=== PATIENT | female | born 1945 | race Caucasian/White ===

== ENCOUNTER 2018-02-01 22:33 | Emergency (ER) | payer MEDICARE, BC ==
[~2018-02-01] VITALS: Ht 162.6 cm; Wt 100.0 kg
[~2018-02-01 22:33] MED LIST: ARIP10TA15 PO; DULO-31 PO; ENAL5TAB10 PO; METF500T PO; PRIM50TA42 PO; TAMO20TA4 PO; VAL5T PO
[2018-02-01] MEDS ORDERED: ipratropium/albuterol 3ml nebule NEB STA (22:43)
[2018-02-01] MEDS ORDERED: LORazepam 2 mg/ml vial IV ONE (22:50)
[2018-02-01] MEDS ORDERED: LORazepam 2 mg/ml vial ONE (22:50)
[2018-02-01 23:39] LABS: BASOPHILS # (AUTO) 0.1 X10'3 (0-0.2); BASOPHILS % (AUTO) 1.3 % (0-1); EOSINOPHILS # (AUTO) 0.1 X10'3 (0-0.9); EOSINOPHILS % (AUTO) 0.9 % (0-6); HEMATOCRIT 46.6 % (35.0-45.0); HEMOGLOBIN 15.6 g/dl (12.0-16.0); LYMPHOCYTES # (AUTO) 2.5 X10'3 (1.1-4.8); LYMPHOCYTES % (AUTO) 29.9 % (21-51); MEAN CORPUSCULAR HEMOGLOBIN 30.6 PG (27.0-31.0); MEAN CORPUSCULAR HGB CONC 33.6 % (33.0-36.5); MEAN CORPUSCULAR VOLUME 91.2 FL (78-98); MEAN PLATELET VOLUME 9.9 FL (7.4-10.4); MONOCYTES # (AUTO) 0.6 X10'3 (0-0.9); MONOCYTES % (AUTO) 6.5 % (2-12); NEUTROPHILS # (AUTO) 5.2 X10'3 (1.8-7.7); NEUTROPHILS % (AUTO) 61.4 % (42-75); PLATELET COUNT 229 X10'3 (140-440); RED BLOOD COUNT 5.11 X10'6 (4.20-5.60); RED CELL DISTRIBUTION WIDTH 14.3 % (11.5-14.5); WHITE BLOOD COUNT 8.5 X10'3 (4.5-11.0)
[2018-02-01 23:48] LABS: PARTIAL THROMBOPLASTIN TIME 22 SECONDS (22-32); PROTHROMBIN TIME 10.3 SECONDS (9.0-12.0)
[2018-02-01] MEDS ORDERED: ipratropium/albuterol 3ml nebule NEB ONE (23:50)
[2018-02-01 23:54] LABS: ALANINE AMINOTRANSFERASE 114 U/L (12-78); ALKALINE PHOSPHATASE 52 IU/L (46-116); ANION GAP 20 (8-16); ASPARTATE AMINO TRANSFERASE 121 U/L (10-37); BILIRUBIN,TOTAL 0.5 MG/DL (0.1-1.0); BLOOD UREA NITROGEN 11 MG/DL (7-18); BUN/CREATININE RATIO 12.8 (6.6-38.0); CHLORIDE 98 MMOL/L (99-107); CREATININE 0.86 MG/DL (0.40-0.90); GLUCOSE 97 MG/DL (70-104); POTASSIUM 3.8 MMOL/L (3.5-5.1); SODIUM 138 MMOL/L (135-145); TOTAL CARBON DIOXIDE 20.1 MMOL/L (24-32); TOTAL PROTEIN 8.1 G/DL (6.4-8.2); eGFR 65 ML/MIN
[2018-02-02 00:47] LABS: D-DIMER 0.92 MG/L FEU (0-0.50)
[2018-02-02] MEDS ORDERED: iohexol 350MG/ML 100ml bottle IV ONE (01:06)
[2018-02-02] MEDS ORDERED: LORazepam 2 mg/ml vial IV ONE (01:25)
[2018-02-02 01:51] LABS: ABG BASE EXCESS 0.1 mmol/L (-2.0-3.0); ABG HCO3 17.6 mmol/L (22.0-26.0); ABG PCO2 (T) 16.3 mmHg (32.0-45.0); ABG PO2 (T) 90.8 mmHg (83-108); ALLEN'S TEST Positive; FCOHb 0.9 % (0.5-1.5); FMetHb 0.3 % (0.3-1.12); FO2Hb 96.8 % (94-100); PATIENT TEMPERATURE 36.6; TOTAL HEMOGLOBIN 15.7 G/dl (12.0-16.0)
[2018-02-02] MEDS ORDERED: PRED20TA PO (03:15)
[2018-02-02 03:27] VITALS: BP 160/66
== END 2018-02-02 03:28 | disposition home or self-care (01) ==
LOC: ER 22:33
DX: J44.9 Chronic obstructive pulmonary disease, unspecified (principal); I27.20 Pulmonary hypertension, unspecified; I10 Essential (primary) hypertension; K21.9 Gastro-esophageal reflux disease without esophagitis; M79.7 Fibromyalgia; Z90.49 Acquired absence of other specified parts of digestive tract; Z86.69 Personal history of other diseases of the nervous system and sense organs; Z95.0 Presence of cardiac pacemaker; Z98.890 Other specified postprocedural states; Z88.2 Allergy status to sulfonamides; Z88.5 Allergy status to narcotic agent; Z88.8 Allergy status to other drugs, medicaments and biological substances; Z79.899 Other long term (current) drug therapy
CPT/HCPCS: 36415; 36600; 71045; 71275; 80053; 82803; 84484; 85018; 85025; 85379; 85610; 85730; 93005; 94640; 94760; 96374; 96376; 99285; J2060; J7030; Q9967

== ENCOUNTER 2020-12-25 01:23 | Inpatient (IN) | payer MEDICARE, OTHER ==
[2020-12-25] VITALS (14 sets, daily range): BP systolic 100–169; BP diastolic 42–68
[~2020-12-25] VITALS: Ht 162.6 cm; Wt 100.0 kg
[~2020-12-25 01:23] MED LIST changes: +DIAZ5TAB22 PO; -ENAL5TAB10 PO; +ENAL5TAB21 PO; -PRIM50TA42 PO; +PRIM50TA5 PO; -VAL5T PO
[2020-12-25] MEDS ORDERED: normal saline 1000ML IV soln IV ONE (01:30)
[2020-12-25] MEDS ORDERED: ondansetron/PF 4mg/2ml inj IV ONE (01:30)
[2020-12-25] MEDS ORDERED: fentaNYL/PF 50MCG/1 ML 2ML syringe IV ONE ×2 (01:30→02:35)
[2020-12-25 02:33] LABS: BASOPHILS % (AUTO) 0.2 % (0-1); EOSINOPHILS % (AUTO) 0 % (0-6); HEMOGLOBIN 17.6 g/dl (12.0-16.0); LYMPHOCYTES # (AUTO) 1.1 X10'3 (1.1-4.8); LYMPHOCYTES % (AUTO) 12.1 % (21-51); MEAN CORPUSCULAR HEMOGLOBIN 30.8 PG (27.0-31.0); MEAN CORPUSCULAR HGB CONC 33.2 g/dL (33.0-36.5); MEAN CORPUSCULAR VOLUME 92.7 FL (78-98); MEAN PLATELET VOLUME 9.6 FL (7.4-10.4); MONOCYTES # (AUTO) 0.3 X10'3 (0-0.9); MONOCYTES % (AUTO) 3.2 % (2-12); NEUTROPHILS # (AUTO) 7.6 X10'3 (1.8-7.7); NEUTROPHILS % (AUTO) 84.5 % (42-75); PLATELET COUNT 194 X10'3 (140-440); RED BLOOD COUNT 5.72 X10'6 (4.20-5.60); RED CELL DISTRIBUTION WIDTH 15.1 % (11.5-14.5)
[2020-12-25] MEDS ORDERED: ceFOXitin 2GM-NS 100mL ADDvant 100 ML IV ONE (02:35)
[2020-12-25] MEDS ORDERED: normal saline 1000ML IV soln IVB ONE ×2 (02:55→05:35)
[2020-12-25 03:02] LABS: ALANINE AMINOTRANSFERASE 88 U/L (12-78); ALBUMIN 3.4 G/DL (3.4-5.0); ALBUMIN/GLOBULIN RATIO 0.8 (1.1-1.5); ALKALINE PHOSPHATASE 94 IU/L (46-116); ANION GAP 18 (8-16); ASPARTATE AMINO TRANSFERASE 62 U/L (10-37); BILIRUBIN,TOTAL 0.8 MG/DL (0.1-1.0); BLOOD UREA NITROGEN 15 MG/DL (7-18); CALCIUM 9.5 MG/DL (8.5-10.1); CHLORIDE 100 MMOL/L (99-107); CREATININE 1.15 MG/DL (0.40-0.90); GLUCOSE 160 MG/DL (70-104); MAGNESIUM 2.5 MG/DL (1.5-2.4); POTASSIUM 3.5 MMOL/L (3.5-5.1); SODIUM 137 MMOL/L (135-145); TOTAL CARBON DIOXIDE 19.3 MMOL/L (24-32); TOTAL PROTEIN 7.7 G/DL (6.4-8.2); eGFR 46 ML/MIN
[2020-12-25] MEDS ORDERED: dextrose ORAL solution 15 GM/59 ML bottle PO PRN ×2 (04:00)
[2020-12-25] MEDS ORDERED: dextrose 50%-water 50ml dispensing syringe IV PRN ×2 (04:00)
[2020-12-25] MEDS ORDERED: glucagon, human recombinant 1mg kit SUBCUT PRN (04:00)
[2020-12-25] MEDS ORDERED: MESSAGE TO PHARMACY PO ONE (04:00)
[2020-12-25] MEDS ORDERED: ondansetron 4mg rapidly disintigrating tab PO PRN (04:05)
[2020-12-25] MEDS ORDERED: magnesium hydroxide 30ml (MOM) UD suspension PO PRN (04:05)
[2020-12-25] MEDS ORDERED: mag hydrox/Alum hydrox/simeth 30ml oral suspension PO PRN (04:05)
[2020-12-25] MEDS ORDERED: diphenhydrAMINE 25mg capsule PO PRN (04:05)
[2020-12-25] MEDS ORDERED: acetaminophen 325mg tablet PO PRN ×2 (04:05)
[2020-12-25] MEDS ORDERED: diphenhydrAMINE 50 mg/ml inj IV PRN (04:05)
[2020-12-25] MEDS ORDERED: bisacodyl 10mg suppository rectal RC PRN (04:05)
[2020-12-25] MEDS ORDERED: normal saline 1000ml 1,000 ML IV SCH (04:05)
[2020-12-25] MEDS ORDERED: ondansetron/PF 4mg/2ml inj IV PRN ×3 (04:05→20:05)
[2020-12-25] MEDS ORDERED: morphine 2 MG/ML inj. syringe IV PRN ×2 (04:05)
[2020-12-25 04:58] LABS: HEMOGLOBIN A1C 5.6 % (4.5-6.2)
[2020-12-25 05:03] LABS: LIPASE 74 U/L (73-393); PHOSPHORUS 5.1 MG/DL (2.3-4.5)
[2020-12-25 05:03] LABS: PARTIAL THROMBOPLASTIN TIME 31 SECONDS (22-32)
[2020-12-25] MEDS ORDERED: EMPA1TAB7 PO (05:11)
[2020-12-25] MEDS ORDERED: CARSR60C PO (05:11)
[2020-12-25] MEDS ORDERED: OLAN-1 PO (05:12)
[2020-12-25] MEDS ORDERED: ASPI-1265 PO (05:13)
[2020-12-25] MEDS ORDERED: SEMA1PEN SQ (05:14)
[2020-12-25] MEDS ORDERED: IPRA3AMP9 IH (05:15)
[2020-12-25] MEDS ORDERED: ALBU0.63 IH (05:16)
[2020-12-25] MEDS ORDERED: GUAI-422 PO (05:18)
[2020-12-25] MEDS ORDERED: DIPH25TA62 PO (05:18)
[2020-12-25] MEDS: HYDROcodone/acetaminophen 5mg/325mg tablet PO PRN (05:40)
--- NOTE | 2020-12-25 05:55 | NUR ---
Patient provided with bedside commode, unable to void at this time. 3rd litre of NS bolus infusing.
--- NOTE | 2020-12-25 06:50 | NUR ---
I have received report from Veronica YANG and had the opportunity to ask questions and assume patient care.
[2020-12-25] MEDS: normal saline 1000ml 1,000 ML IV SCH ×3 (07:35→21:10)
[2020-12-25] MEDS ORDERED: CADD PCA waste documentation MC PRN (07:35)
[2020-12-25] MEDS ORDERED: naloxone 0.4 mg/ml inj IV PRN (07:35)
--- NOTE | 2020-12-25 07:35 | NUR ---
PAGER ID: [phone] MESSAGE: [id number]. Please address med rec, janie hanley [phone]
[2020-12-25] MEDS: pantoprazole 40 MG vial IV SCH (07:42)
[2020-12-25] MEDS: sennosides/docusate sodium tablet PO SCH ×2 (07:43→21:32)
[2020-12-25] MEDS: docusate sod 100mg capsule PO SCH ×2 (07:43→21:32)
[2020-12-25] MEDS ORDERED: rocuronium 10mg/ml inj IV ONE ×2 (08:00→18:33)
[2020-12-25] MEDS ORDERED: piperacillin/tazo 4.5gm/100ml 100 ML IV SCH (08:00)
[2020-12-25] MEDS ORDERED: docusate sod 100mg capsule PO SCH (08:00)
[2020-12-25] MEDS ORDERED: etomidate 2mg/ml inj. ONE (08:00)
[2020-12-25] MEDS ORDERED: diazepam 5mg tablet PO PRN (08:15)
[2020-12-25] MEDS: HYDROmorph./NS 0.2 mg/ml CADD 100 ML IV SCH ×5 (08:51→17:00)
--- NOTE | 2020-12-25 08:57 | NUR ---
Received a call from Dr. Duque regarding patient, wants general consent ordered for laproscopic possible open appendectomy, dilaudid cadd with standard setting and antibiotics (already on zosyn). Dilaudid Cadd set up and running, patient educated regarding use.
--- NOTE | 2020-12-25 10:00 | NUR ---
Patient had not voided since being in the hospital, bladder scan reveled 732 mls in bladder, obtained order from Dr. Yin for a protocol pompa to be placed due to urinary retention
--- NOTE | 2020-12-25 11:09 | NUR ---
PAGER ID: [phone] MESSAGE: [phone], Lalitha, had normal saline ordered for 100mls per hour but it got discontinued. Do you want her on fluids ? lactic was 4.9 in the ER. Fiona [id number]
[2020-12-25] MEDS: ipratropium/albuterol 3ml nebule IH SCH ×3 (13:00→20:40)
--- NOTE | 2020-12-25 13:11 | NUR ---
PT. REFUSED 1300 SVN...STATES SHE DOESN'T WANT TO COUGH DUE TO ABDOMINAL PAIN
--- NOTE | 2020-12-25 13:12 | NUR ---
Called OR charge nurse to let them know about patients diabetic medications.
--- NOTE | 2020-12-25 14:57 | NUR ---
DM Consult: Pt hx T2DM takes metformin at home w/ A1C 5.6 this admit per EMR. Not appropriate for DM ed at this time. Addendum: 12/25/20 at [address] Amended: Links added.
--- NOTE | 2020-12-25 15:37 | NUR ---
Problems reprioritized. Patient report given, questions answered & plan of care reviewed with Thee CADMIUM LIQUOR MAKER RN.
[2020-12-25] MEDS ORDERED: BUPIVAcaine 0.5% inj/PF 30 ML ONE (15:44)
[2020-12-25] MEDS ORDERED: LIDOcaine 1% 30ml preserv. free vial ONE (16:56)
[2020-12-25] MEDS: morphine 4 MG/ML inj SYRINge ONE (17:34)
[2020-12-25] MEDS ORDERED: albuterol 60 PUFF/8GM Inhaler IH ONE (18:00)
[2020-12-25] MEDS ORDERED: sevoflurane 250ml liquid IH ONE (18:00)
[2020-12-25] MEDS ORDERED: famotidine/PF 10 mg/ml inj IV ONE ×2 (18:00→18:47)
[2020-12-25] MEDS ORDERED: fentaNYL/PF 50MCG/1 ML 2ML syringe ONE (18:10)
[2020-12-25] MEDS ORDERED: midazolam 1 mg/ML 2ml injection ONE (18:10)
--- NOTE | 2020-12-25 18:30 | NUR ---
Problems reprioritized. Patient report given, questions answered & plan of care reviewed with Gertrude YANG.
[2020-12-25] MEDS ORDERED: LIDOcaine 2% (20mg/ml) 5ml vial ONE (18:33)
[2020-12-25] MEDS ORDERED: dexamethasone sod phosphate 4mg/ml inj. ONE (18:33)
[2020-12-25] MEDS ORDERED: propofol inj 20 ML IV ONE (18:33)
[2020-12-25] MEDS ORDERED: ondansetron/PF 4mg/2ml inj ONE (18:33)
[2020-12-25] MEDS ORDERED: ceFOXitin 1000 MG inj ONE ×2 (18:33)
[2020-12-25] MEDS ORDERED: ePHEDrine 50MG/ML INJ. ONE (18:35)
[2020-12-25] MEDS ORDERED: glycopyrrolate 0.2mg/ml inj ONE (19:21)
[2020-12-25] MEDS ORDERED: neostigmine methylsulfate 1 MG/ML 10ml vial ONE (19:21)
[2020-12-25] MEDS ORDERED: sugammadex 200mg/2ml injection IV ONE (19:46)
[2020-12-25] MEDS ORDERED: flumazenil 0.1 mg/ml inj. IV ONE (19:54)
[2020-12-25] MEDS ORDERED: [UNRECOGNIZED DRUG - OTHER] PO SCH (20:00)
[2020-12-25] MEDS ORDERED: labetalol 20mg/4ml (5mg/ml) syringe IV PRN (20:05)
[2020-12-25] MEDS ORDERED: HYDROmorphone/PF 0.2 MG/ML SYRINGE IV PRN (20:05)
[2020-12-25] MEDS ORDERED: proCHLORperazine 10 MG/2 ml inj IV PRN (20:05)
[2020-12-25] MEDS ORDERED: acetaminophen 1,000mg/100ml IV 100 ML IV PRN (20:05)
[2020-12-25] MEDS ORDERED: hydrALAZINE 20mg/ml inj. IV PRN (20:05)
[2020-12-25] MEDS ORDERED: ringers solution, lacted 1,000 ML IV SCH (20:05)
--- NOTE | 2020-12-25 20:05 | NUR ---
Received from OR via gurney, accompanied by Anesthesiologist and report given by Anesthesiologist. PATIENT WAKING UP, NO S/S OF PAIN, V/S WNL, SCD ON, 20G TO RUE, LAP SURGICAL SITES TO ABDOMEN CDI W/ BUBBA THAT IS FULL ON ARRIVAL.
[2020-12-25] MEDS ORDERED: ipratropium/albuterol 3ml nebule IH ONE (20:10)
--- NOTE | 2020-12-25 20:55 | NUR ---
PATIENT A&OX4, DENIES PAIN, V/S WNL, SCD ON, 20G TO RUE, LAP SURGICAL SITES TO ABDOMEN CDI W/ BUBBA THAT WAS DRAINED A 2ND TIME DR ARORA AWARE OF OUTPUT SO FAR. PATIENT TAKEN TO ORTHO ROOM WITH ALL BELONGINGS AND HOOKED UP TO MONITORS IN ROOM AND GIVEN CALL LIGHT, REPORT GIVEN TO RN WHO HAS TAKEN OVER PATIENT CARE.
[2020-12-25] MEDS ORDERED: temazepam 15mg capsule PO PRN (21:00)
[2020-12-25] MEDS: duloxetine 30mg CAPSULE.DR PO SCH (21:33)
[2020-12-25] MEDS: piperacillin/tazo 4.5gm/100ml 100 ML IV SCH (21:43)
[2020-12-26 00:45] VITALS: BP 133/44
--- NOTE | 2020-12-26 03:05 | NUR ---
Duplicate colace orders put in. I stopped the 100mg and continued the 200 mg dose.
--- NOTE | 2020-12-26 04:13 | NUR ---
Pt got back from surgery around 2100 so, started missed Zosyn dose very late. Talked to charge and pharmacist who said just run it at night and then have day nurse start the am dose and hour early to get back on schedule.
[2020-12-26] MEDS: HYDROmorph./NS 0.2 mg/ml CADD 100 ML IV SCH ×10 (05:27→23:00)
[2020-12-26 06:00] VITALS: BP 141/54
--- NOTE | 2020-12-26 06:25 | NUR ---
Patient in room ORTHO 4009B. I have received report from TREY Loredo and had the opportunity to ask questions and assume patient care.
[2020-12-26] MEDS: normal saline 1000ml 1,000 ML IV SCH ×2 (07:10→17:10)
[2020-12-26] MEDS: piperacillin/tazo 4.5gm/100ml 100 ML IV SCH ×3 (07:30→17:36)
[2020-12-26 07:31] LABS: ALANINE AMINOTRANSFERASE 60 U/L (12-78); ALBUMIN 2.2 G/DL (3.4-5.0); ALBUMIN/GLOBULIN RATIO 0.6 (1.1-1.5); ALKALINE PHOSPHATASE 41 IU/L (46-116); ANION GAP 12 (8-16); ASPARTATE AMINO TRANSFERASE 47 U/L (10-37); BILIRUBIN,TOTAL 0.4 MG/DL (0.1-1.0); BLOOD UREA NITROGEN 23 MG/DL (7-18); BUN/CREATININE RATIO 28.4 (6.6-38.0); CALCIUM 8.8 MG/DL (8.5-10.1); CHLORIDE 106 MMOL/L (99-107); CREATININE 0.81 MG/DL (0.40-0.90); GLUCOSE 130 MG/DL (70-104); SODIUM 139 MMOL/L (135-145); TOTAL CARBON DIOXIDE 21.1 MMOL/L (24-32); TOTAL PROTEIN 6.1 G/DL (6.4-8.2); eGFR 69 ML/MIN
[2020-12-26] MEDS: pantoprazole 40 MG vial IV SCH (07:33)
[2020-12-26 07:37] LABS: POTASSIUM 4.6 MMOL/L (3.5-5.1)
[2020-12-26] MEDS: ARIPIPRAZOLE 10 MG TABLET PO SCH (07:40)
[2020-12-26] MEDS: aspirin 81mg tab.chew PO SCH (07:40)
[2020-12-26] MEDS: diphenhydrAMINE 25mg capsule PO SCH (07:47)
[2020-12-26 07:48] LABS: BASOPHILS % (AUTO) 0.1 % (0-1); EOSINOPHILS # (AUTO) 0.1 X10'3 (0-0.9); EOSINOPHILS % (AUTO) 0.6 % (0-6); HEMATOCRIT 45.6 % (35.0-45.0); HEMOGLOBIN 14.9 g/dl (12.0-16.0); LYMPHOCYTES # (AUTO) 1.3 X10'3 (1.1-4.8); LYMPHOCYTES % (AUTO) 8.7 % (21-51); MEAN CORPUSCULAR HEMOGLOBIN 30.2 PG (27.0-31.0); MEAN CORPUSCULAR HGB CONC 32.7 g/dL (33.0-36.5); MEAN CORPUSCULAR VOLUME 92.2 FL (78-98); MEAN PLATELET VOLUME 9.6 FL (7.4-10.4); MONOCYTES # (AUTO) 0.7 X10'3 (0-0.9); MONOCYTES % (AUTO) 5.1 % (2-12); NEUTROPHILS # (AUTO) 12.3 X10'3 (1.8-7.7); NEUTROPHILS % (AUTO) 85.5 % (42-75); PLATELET COUNT 165 X10'3 (140-440); RED BLOOD COUNT 4.94 X10'6 (4.20-5.60); RED CELL DISTRIBUTION WIDTH 15.1 % (11.5-14.5); WHITE BLOOD COUNT 14.4 X10'3 (4.5-11.0)
[2020-12-26] MEDS: diltiazem CD 120mg capsule (once-daily) PO SCH (07:51)
[2020-12-26] MEDS: docusate sod 100mg capsule PO SCH ×2 (07:52→21:11)
[2020-12-26] MEDS: primidone 50mg tablet PO SCH (07:53)
[2020-12-26] MEDS: duloxetine 30mg CAPSULE.DR PO SCH ×2 (07:53→21:11)
[2020-12-26] MEDS: tamoxifen 10mg tablet PO SCH (07:54)
[2020-12-26] MEDS: sennosides/docusate sodium tablet PO SCH ×2 (07:55→21:11)
[2020-12-26] MEDS: OLANZapine 5mg rapidly disint. tablet PO SCH (07:55)
[2020-12-26] MEDS: enoxaparin 40mg/0.4ml syringe SQ SCH (07:56)
[2020-12-26] MEDS: ipratropium/albuterol 3ml nebule IH SCH ×4 (08:00→20:07)
[2020-12-26 08:42] LABS: PLATELET ESTIMATE NORMAL; TOTAL CELLS COUNTED 100
[2020-12-26 10:00] VITALS: BP 157/60
--- NOTE | 2020-12-26 11:12 | NUR ---
Page Sent PAGER ID: [phone] MESSAGE: ANDREA Fraire0-MONICA RICHEY...POSITIVE CULTURE...GRAM NEGATIVE RODS SEEN IN ANAEROBIC BOTTLE @28.48 HRS, RIGHT ARM
[2020-12-26 18:00] VITALS: BP 181/68
--- NOTE | 2020-12-26 18:45 | NUR ---
Problems reprioritized. Patient report given, questions answered & plan of care reviewed with TREY ALCANTAR.
--- NOTE | 2020-12-26 18:45 | NUR ---
Patient in room ORTHO 4009. I have received report from Jamia YANG and had the opportunity to ask questions and assume patient care.
[2020-12-26] MEDS: lactobacillus rhamnosus 10,000 MMU CELLS/CAPSULE PO SCH (21:11)
[2020-12-26 22:00] VITALS: BP 159/82
[2020-12-27] MEDS: piperacillin/tazo 4.5gm/100ml 100 ML IV SCH ×3 (00:40→16:15)
[2020-12-27] MEDS: HYDROmorph./NS 0.2 mg/ml CADD 100 ML IV SCH ×12 (01:00→23:00)
[2020-12-27] MEDS: morphine 4 MG/ML inj SYRINge ONE (01:16)
[2020-12-27] MEDS: normal saline 1000ml 1,000 ML IV SCH ×4 (03:10→23:10)
[2020-12-27 06:00] VITALS: BP 182/83
--- NOTE | 2020-12-27 06:24 | NUR ---
Problems reprioritized. Patient report given, questions answered & plan of care reviewed with Jamia YANG.
--- NOTE | 2020-12-27 06:37 | NUR ---
Patient in room ORTHO 4009B. I have received report from TREY Fuentes and had the opportunity to ask questions and assume patient care.
[2020-12-27] MEDS: ipratropium/albuterol 3ml nebule IH SCH ×4 (07:00→20:05)
[2020-12-27] MEDS: pantoprazole 40mg Tablet.DR PO SCH (07:32)
[2020-12-27] MEDS: ARIPIPRAZOLE 10 MG TABLET PO SCH (07:33)
[2020-12-27] MEDS: aspirin 81mg tab.chew PO SCH (07:34)
[2020-12-27] MEDS: docusate sod 100mg capsule PO SCH ×2 (07:35→21:28)
[2020-12-27] MEDS: lactobacillus rhamnosus 10,000 MMU CELLS/CAPSULE PO SCH ×2 (07:35→21:27)
[2020-12-27] MEDS: diphenhydrAMINE 25mg capsule PO SCH (07:35)
[2020-12-27] MEDS: diltiazem CD 120mg capsule (once-daily) PO SCH (07:35)
[2020-12-27] MEDS: duloxetine 30mg CAPSULE.DR PO SCH ×2 (07:37→21:27)
[2020-12-27] MEDS: primidone 50mg tablet PO SCH (07:37)
[2020-12-27] MEDS: tamoxifen 10mg tablet PO SCH (07:38)
[2020-12-27] MEDS: sennosides/docusate sodium tablet PO SCH ×2 (07:38→21:28)
[2020-12-27] MEDS: OLANZapine 5mg rapidly disint. tablet PO SCH (07:38)
[2020-12-27] MEDS: enoxaparin 40mg/0.4ml syringe SQ SCH (07:40)
[2020-12-27] MEDS ORDERED: diltiazem 30mg tablet PO ONE (08:40)
[2020-12-27 09:11] LABS: BASOPHILS % (AUTO) 0.1 % (0-1); EOSINOPHILS % (AUTO) 0 % (0-6); HEMATOCRIT 49.3 % (35.0-45.0); HEMOGLOBIN 16.1 g/dl (12.0-16.0); LYMPHOCYTES # (AUTO) 1.1 X10'3 (1.1-4.8); LYMPHOCYTES % (AUTO) 6.5 % (21-51); MEAN CORPUSCULAR HGB CONC 32.8 g/dL (33.0-36.5); MEAN CORPUSCULAR VOLUME 91.5 FL (78-98); MEAN PLATELET VOLUME 8.8 FL (7.4-10.4); MONOCYTES # (AUTO) 0.5 X10'3 (0-0.9); MONOCYTES % (AUTO) 3.1 % (2-12); NEUTROPHILS # (AUTO) 14.7 X10'3 (1.8-7.7); NEUTROPHILS % (AUTO) 90.3 % (42-75); PLATELET COUNT 221 X10'3 (140-440); RED BLOOD COUNT 5.38 X10'6 (4.20-5.60); RED CELL DISTRIBUTION WIDTH 15.8 % (11.5-14.5); WHITE BLOOD COUNT 16.3 X10'3 (4.5-11.0)
[2020-12-27 09:28] LABS: ALANINE AMINOTRANSFERASE 49 U/L (12-78); ALBUMIN 2.4 G/DL (3.4-5.0); ALBUMIN/GLOBULIN RATIO 0.5 (1.1-1.5); ALKALINE PHOSPHATASE 70 IU/L (46-116); ANION GAP 16 (8-16); ASPARTATE AMINO TRANSFERASE 37 U/L (10-37); BILIRUBIN,TOTAL 0.6 MG/DL (0.1-1.0); BLOOD UREA NITROGEN 28 MG/DL (7-18); BUN/CREATININE RATIO 41.2 (6.6-38.0); CALCIUM 9.5 MG/DL (8.5-10.1); CHLORIDE 107 MMOL/L (99-107); CREATININE 0.68 MG/DL (0.40-0.90); GLUCOSE 143 MG/DL (70-104); POTASSIUM 4.3 MMOL/L (3.5-5.1); SODIUM 144 MMOL/L (135-145); TOTAL CARBON DIOXIDE 20.7 MMOL/L (24-32); eGFR 84 ML/MIN
[2020-12-27] MEDS ORDERED: furosemide 20 MG/2 ML vial IV ONE (09:55)
[2020-12-27 10:00] VITALS: BP 165/65
--- NOTE | 2020-12-27 10:17 | NUR ---
PAGED RESPIRATORY... ANDREA [id number]-RE: [id number]...PT NEEDS BREATHING TX AND ABG'S, THANK YOU
[2020-12-27 10:58] LABS: ABG BASE EXCESS -2.8 mmol/L (-2.0-2.0); ABG HCO3 21.2 mmol/L (22.0-26.0); ABG OXYGEN SATURATION 94.9 % (94-97); ABG PCO2 (T) 34.8 mmHg (32.0-45.0); ABG PO2 (T) 66.7 mmHg (75.0-100.0); ALLEN'S TEST POSITIVE; FCOHb 0.5 % (0.0-3.9); FLOW 4 L/min; FMetHb 0.3 % (0.0-1.5); FO2Hb 94.1 % (94-97); PATIENT TEMPERATURE 36.9; TOTAL HEMOGLOBIN 16.7 G/dl (12.0-16.0)
[2020-12-27 14:00] VITALS: BP 188/73
[2020-12-27] MEDS ORDERED: albuterol 2.5 MG/3 ML nebule NEB PRN (16:05)
[2020-12-27 18:00] VITALS: BP 159/88
--- NOTE | 2020-12-27 18:27 | NUR ---
Problems reprioritized. Patient report given, questions answered & plan of care reviewed with TREY ALCANTAR.
--- NOTE | 2020-12-27 18:40 | NUR ---
Patient in room ORTHO 4009. I have received report from Jamia YANG and had the opportunity to ask questions and assume patient care.
[2020-12-27] MEDS ORDERED: ipratropium/albuterol 3ml nebule NEB SCH (19:00)
[2020-12-27] MEDS: furosemide 20 MG/2 ML vial IV SCH (21:28)
[2020-12-27 22:00] VITALS: BP 166/69
[2020-12-28] VITALS (13 sets, daily range): BP systolic 109–174; BP diastolic 40–91
[2020-12-28] MEDS: HYDROmorph./NS 0.2 mg/ml CADD 100 ML IV SCH ×8 (01:00→15:00)
[2020-12-28] MEDS: piperacillin/tazo 4.5gm/100ml 100 ML IV SCH ×3 (01:06→16:00)
--- NOTE | 2020-12-28 05:00 | NUR ---
Called Rapid response due to change in patients condition. Pt is lethargic, increased oxygen demand, O2 increased to 15L on simple mask. Pt abdomen is distended, she is cool to touch, with 100.9ax temp. Not following commands. Pt blood sugar is 170. BP 131/61 HR 74 O2 90 on 15L. ICU nurse, bottom scrubber, RT, and MD at bedside. Orders were received and placed accordingly.
[2020-12-28] MEDS: metroNIDAZOLE-Flagyl 500mg/NS 100 ML IV SCH ×2 (05:58→08:00)
[2020-12-28 06:22] LABS: BASOPHILS % (AUTO) 0 % (0-1); EOSINOPHILS % (AUTO) 0 % (0-6); HEMOGLOBIN 16.5 g/dl (12.0-16.0); LYMPHOCYTES # (AUTO) 1.1 X10'3 (1.1-4.8); LYMPHOCYTES % (AUTO) 6.8 % (21-51); MEAN CORPUSCULAR HEMOGLOBIN 30.1 PG (27.0-31.0); MEAN CORPUSCULAR HGB CONC 31.8 g/dL (33.0-36.5); MEAN CORPUSCULAR VOLUME 94.7 FL (78-98); MONOCYTES % (AUTO) 6.4 % (2-12); NEUTROPHILS # (AUTO) 13.8 X10'3 (1.8-7.7); NEUTROPHILS % (AUTO) 86.8 % (42-75); PLATELET COUNT 238 X10'3 (140-440); RED BLOOD COUNT 5.49 X10'6 (4.20-5.60); RED CELL DISTRIBUTION WIDTH 16.1 % (11.5-14.5); WHITE BLOOD COUNT 15.9 X10'3 (4.5-11.0)
--- NOTE | 2020-12-28 06:45 | NUR ---
Problems reprioritized. Patient report given, questions answered & plan of care reviewed with Jamia YANG.
[2020-12-28] MEDS: acetaminophen 650mg rectal suppository RC PRN ×2 (06:53→13:54)
--- NOTE | 2020-12-28 07:20 | NUR ---
Page Sent PAGER ID: [phone] MESSAGE: ANDREA 5199-RE: MONICA RICHEY [phone]...RAPID CALLED ON PT TIS AM, ABX CHANGED BY BRIANDA SO, T 102.9 AX (TYLENOL SUPP GIVEN) 166/69 HR 69 R 35 SA02 94% ON 15L CPAP, ACCESSORY MUSCLES TO BREATHE, OBUTNDED, PLEASE ADVISE
[2020-12-28 07:28] LABS: ABG BASE EXCESS -0.4 mmol/L (-2.0-2.0); ABG HCO3 21.6 mmol/L (22.0-26.0); ABG OXYGEN SATURATION 93.5 % (94-97); ABG PCO2 (T) 32.9 mmHg (32.0-45.0); ABG PO2 (T) 72.3 mmHg (75.0-100.0); ALLEN'S TEST POSITIVE; FCOHb 0.7 % (0.0-3.9); FLOW 15 L/min; FMetHb 0.3 % (0.0-1.5); FO2Hb 92.6 % (94-97); PATIENT TEMPERATURE 39.4; TOTAL HEMOGLOBIN 16.6 G/dl (12.0-16.0)
[2020-12-28] MEDS: pantoprazole 40mg Tablet.DR PO SCH (07:30)
[2020-12-28] MEDS ORDERED: furosemide 40mg/4ml inj IV ONE (07:50)
[2020-12-28 07:58] LABS: ALANINE AMINOTRANSFERASE 43 U/L (12-78); ALBUMIN 2.3 G/DL (3.4-5.0); ALBUMIN/GLOBULIN RATIO 0.5 (1.1-1.5); ALKALINE PHOSPHATASE 77 IU/L (46-116); ANION GAP 16 (8-16); ASPARTATE AMINO TRANSFERASE 54 U/L (10-37); BILIRUBIN,TOTAL 0.7 MG/DL (0.1-1.0); BLOOD UREA NITROGEN 37 MG/DL (7-18); BUN/CREATININE RATIO 49.3 (6.6-38.0); CHLORIDE 109 MMOL/L (99-107); CREATININE 0.75 MG/DL (0.40-0.90); GLUCOSE 191 MG/DL (70-104); SODIUM 148 MMOL/L (135-145); TOTAL CARBON DIOXIDE 22.8 MMOL/L (24-32); TOTAL PROTEIN 6.7 G/DL (6.4-8.2); eGFR 75 ML/MIN
[2020-12-28] MEDS ORDERED: meropenem inj 1 GM in normal saline 100ml IV soln 100 ML IV SCH (08:00)
[2020-12-28] MEDS: docusate sod 100mg capsule PO SCH (08:00)
[2020-12-28] MEDS: furosemide 20 MG/2 ML vial IV SCH (08:00)
[2020-12-28] MEDS: duloxetine 30mg CAPSULE.DR PO SCH (08:00)
[2020-12-28] MEDS ORDERED: morphine 10mg/0.5ml (conc. morphine) oral syringe PO ONE (08:00)
[2020-12-28] MEDS: lactobacillus rhamnosus 10,000 MMU CELLS/CAPSULE PO SCH (08:00)
[2020-12-28] MEDS ORDERED: diltiazem CD 180mg cap (once-daily) PO SCH (08:00)
[2020-12-28] MEDS: ipratropium/albuterol 3ml nebule IH SCH ×4 (08:04→19:20)
--- NOTE | 2020-12-28 08:04 | NUR ---
Page Sent promotional table spacer PAGER ID: [phone] MESSAGE: ANDREA 5193-RE: MONICA RICHEY [id number]...PT HAS A MORPHINE ALLERGY, CANNOT GIVE ROXANOL
--- NOTE | 2020-12-28 08:06 | NUR ---
PER MD DO NOT GIVE ROXANOL
--- NOTE | 2020-12-28 08:50 | NUR ---
PAGED PICC RN: ANDREA 5199-RE: [id number]...PT HARD STICK, NEED A LINE WE CAN DRAW FROM, PLEASE HELP :)
--- NOTE | 2020-12-28 08:52 | NUR ---
PICC RN WILL COME UP AFTER PICC PLACEMENTS ON PCU
[2020-12-28] MEDS ORDERED: PERFLUTREN PROTEIN-A MICROSPHR (Optison) 0.22 MG/ML 3ML VIAL IV ONE (09:20)
[2020-12-28] MEDS ORDERED: Lactulose Enema **for rectal use only RC ONE ×2 (10:00)
[2020-12-28 10:28] LABS: D-DIMER 12.64 MG/L FEU (0-0.50)
--- NOTE | 2020-12-28 11:00 | NUR ---
NG TUBE PLACEMENT, LEFT NARE. PT TOLERATED PROCEDURE WELL, NO COMPLICATIONS. PLACEMENT VERIFIED WITH AIR AND STETHOSCOPE. HOOKED UP TO LOW INTERMITTENT SUCTION PER MD ORDER. GASTRIC CONTENTS STARTED TO SUCTION OUT. WILL CONTINUE TO MONITOR.
--- NOTE | 2020-12-28 11:12 | NUR ---
Page Sent PAGER ID: [phone] MESSAGE: ANDREA 5199-RE: [id number] MONICA RICHEY...CAN YOU CHANGE MEDS TO NG OR IV ROUTE PLEASE :)
[2020-12-28] MEDS: enoxaparin 40mg/0.4ml syringe SQ SCH (11:17)
[2020-12-28] MEDS ORDERED: temazepam 15mg capsule NG PRN (11:35)
[2020-12-28] MEDS ORDERED: ondansetron 4mg rapidly disintigrating tab NG PRN (11:35)
--- NOTE | 2020-12-28 12:14 | NUR ---
Page Sent PAGER ID: [phone] MESSAGE: ANDREA 5199-RE: [id number] CAN YOU SIGN THE PICC CONSENT, PLEASE AND THANK YOU
--- NOTE | 2020-12-28 12:22 | NUR ---
PAGED PICC TREY MENDEZ 5199-PT IN 4009B ROSSI NEEDS A PICC PLEASE, CONSENT IN CHART
[2020-12-28] MEDS: lactulose 20gm/30ml cup NG SCH (14:00)
[2020-12-28] MEDS ORDERED: iohexol 350MG/ML 100ml bottle IV ONE (15:49)
--- NOTE | 2020-12-28 16:50 | NUR ---
Problems reprioritized. Patient report given, questions answered & plan of care reviewed with TREY HYMAN IN ICU.
[2020-12-28] MEDS ORDERED: midazolam 1 mg/ML 2ml injection ONE (16:57)
--- NOTE | 2020-12-28 17:00 | NUR ---
PT RECEIVED FROM 4009 BY BED AFTER REPORT GIVEN. DR Basilio AT PT INTUBATED WITH 7.5 ETT WITHOUT DIFFICULTY. CL PLACED RT IJ. CXR DONE. RESTRAINTS APPLIED. DIPRIVAN HUNG AFTER ETOMIDATE, IMANI AND VERSED 2MG GIVEN. PT EXCORIATED BUTTOCKS, , FRANCI AREA AND UNDER BREASTS. PT NOT RESPONSIVE AT PRESENT. FACE FLUSHED, AFEBRILE. LEGS MOTTLED.
--- NOTE | 2020-12-28 17:24 | NUR ---
TRANSFERRED PT TO ICU. BELONGINGS GATHERED AND GIVEN TO .
[2020-12-28] MEDS ORDERED: morphine 2 MG/ML inj. syringe IV PRN (17:25)
[2020-12-28] MEDS ORDERED: propofol 1000mg/100ml bottle 100 ML IV ONE (17:25)
[2020-12-28] MEDS ORDERED: morphine 4 MG/ML inj SYRINge IV PRN (17:25)
[2020-12-28] MEDS ORDERED: ondansetron/PF 4mg/2ml inj IV PRN (17:25)
[2020-12-28] MEDS ORDERED: magnesium hydroxide 30ml (MOM) UD suspension NG PRN ×2 (17:25→18:02)
[2020-12-28] MEDS ORDERED: acetaminophen 325mg tablet PO PRN ×2 (17:25)
[2020-12-28 17:34] LABS: ABG HCO3 24.6 mmol/L (22.0-26.0); ABG OXYGEN SATURATION 97.4 % (94-97); ABG PCO2 (T) 40.3 mmHg (32.0-45.0); ABG PO2 (T) 107.8 mmHg (75.0-100.0); ALLEN'S TEST POSITIVE; FCOHb 0.6 % (0.0-3.9); FMetHb 0.1 % (0.0-1.5); FO2Hb 96.7 % (94-97); PATIENT TEMPERATURE 39.2; PEEP 5 cm H2O; RESPIRATORY RATE 18 b/min; TIDAL VOLUME 425 mL; TOTAL HEMOGLOBIN 15.7 G/dl (12.0-16.0)
[2020-12-28] MEDS ORDERED: furosemide 40mg/4ml inj ONE (17:37)
[2020-12-28] MEDS ORDERED: acetaminophen 325mg tablet NG PRN (17:39)
[2020-12-28] MEDS ORDERED: dextrose ORAL solution 15 GM/59 ML bottle NG PRN ×2 (17:39→17:41)
[2020-12-28] MEDS: propofol 1000mg/100ml bottle 100 ML IV SCH (17:50)
[2020-12-28] MEDS ORDERED: FENTANYL-0.9 % NACL/PF 100 ML IV PRN (17:50)
[2020-12-28] MEDS ORDERED: mag hydrox/Alum hydrox/simeth 30ml oral suspension NG PRN (18:02)
[2020-12-28 18:12] LABS: GLUCOSE, URINE 500 mg/dl (Neg); KETONES,URINE 40 mg/dl (Neg); LEUKOCYTE ESTERASE ,URINE TRACE (Neg); NITRITES, URINE NEGATIVE (Neg); OCCULT BLOOD,URINE MODERATE (Neg); PH,URINE 5.5 (4.8-8.0); PROTEIN,URINE TRACE mg/dl (Neg); UROBILINOGEN,URINE 0.2 E.U/dL (0.2-1.0)
[2020-12-28 18:22] LABS: BASOPHILS % (AUTO) 0.2 % (0-1); EOSINOPHILS % (AUTO) 0 % (0-6); HEMATOCRIT 45.3 % (35.0-45.0); HEMOGLOBIN 14.9 g/dl (12.0-16.0); LYMPHOCYTES # (AUTO) 1.2 X10'3 (1.1-4.8); LYMPHOCYTES % (AUTO) 8.9 % (21-51); MEAN CORPUSCULAR VOLUME 90.9 FL (78-98); MEAN PLATELET VOLUME 9.2 FL (7.4-10.4); MONOCYTES # (AUTO) 1.4 X10'3 (0-0.9); MONOCYTES % (AUTO) 10.8 % (2-12); NEUTROPHILS # (AUTO) 10.5 X10'3 (1.8-7.7); NEUTROPHILS % (AUTO) 80.1 % (42-75); PLATELET COUNT 208 X10'3 (140-440); RED BLOOD COUNT 4.98 X10'6 (4.20-5.60); RED CELL DISTRIBUTION WIDTH 15.2 % (11.5-14.5); WHITE BLOOD COUNT 13.2 X10'3 (4.5-11.0)
[2020-12-28 18:32] LABS: PLATELET COUNT 208 X10'3 (140-440)
[2020-12-28 18:36] LABS: UA COLLECTION TYPE FOLEY CATH
[2020-12-28 18:37] LABS: ANION GAP 13 (8-16); CHLORIDE 113 MMOL/L (99-107); GLUCOSE 183 MG/DL (70-104); POTASSIUM 3.3 MMOL/L (3.5-5.1); SODIUM 153 MMOL/L (135-145); TOTAL CARBON DIOXIDE 27.2 MMOL/L (24-32)
[2020-12-28 18:37] LABS: CLARITY,URINE SLIGHTLY CLOUDY (Clear); COLOR,URINE DARK YELLOW (Yellow)
[2020-12-28 18:38] LABS: BACTERIA,URINE FEW /HPF (Neg); SQUAMOUS EPITHELIAL CELL,UR FEW /LPF (FEW)
[2020-12-28 18:38] LABS: ALANINE AMINOTRANSFERASE 43 U/L (12-78); ALBUMIN 2.1 G/DL (3.4-5.0); ALBUMIN/GLOBULIN RATIO 0.5 (1.1-1.5); ALKALINE PHOSPHATASE 73 IU/L (46-116); AMYLASE 173 U/L (25-115); ASPARTATE AMINO TRANSFERASE 55 U/L (10-37); BILIRUBIN,TOTAL 0.8 MG/DL (0.1-1.0); BLOOD UREA NITROGEN 42 MG/DL (7-18); BUN/CREATININE RATIO 48.3 (6.6-38.0); CALCIUM 8.7 MG/DL (8.5-10.1); CREATININE 0.87 MG/DL (0.40-0.90); LIPASE 536 U/L (73-393); MAGNESIUM 2.8 MG/DL (1.5-2.4); PHOSPHORUS 1.9 MG/DL (2.3-4.5); TOTAL PROTEIN 6.2 G/DL (6.4-8.2); TRIGLYCERIDES 227 MG/DL (20-135); eGFR 63 ML/MIN
[2020-12-28 18:39] LABS: MUCUS STRANDS MODERATE /LPF (Neg); YEAST MANY /HPF (NEGATIVE)
--- NOTE | 2020-12-28 18:44 | NUR ---
0600 ARRIVED ON THE FLOOR. I WAS ADVISED THAT A RAPID RESPONSE HAD BEEN CALLED ON PT. UPON ASSESSMENT PT FACE FLUSHED, MODELED LEGS AND HANDS AND RAPID RESPIRATIONS WITH RETRACTIONS. LUNG SOUNDS DIMINISHED WITH CRACKLES BILAT. ABD DISTENDED AND FIRM. DAY SHIFT MD ADVISED OF PTS STATUS AND LABS WERE ORDERED ALONG WITH CXR AND ABG'S. PT WAS NPO. AMMONIA LEVEL CAME BACK HIGH. ORDERS GIVEN TO DO A LACTULOSE ENEMA. THEN WAS TOLD TO WAIT ON THE ENEMA DUE TO NG TUBE BEING ORDERED. NG TUBE PLACE WITH NO COMPLICATIONS, PT TOLERATED WELL. THEN WAS TOLD TO WAIT ON LACTULOSE UNTIL GASTRIC CONTENTS WERE EVACUATED. DR ARORA WAS ON FLOOR AND SAID WOULD BE BACK TO ADJUST NG TUBE. PT KEPT DECLINING, STRUGGLING TO BREATHE. RESPIRATORY WAS PAGED MULTIPLE TIMES TO ASSESS PT. DR ARORA CAME BACK AROUND 1530, ADJUSTED NG TUBE AND 1900CC GASTRIC FLUIDS WAS EVACUATED FROM PT. DR ARORA AGREED PT NEEDED SUPPORT OF ICU AND CALLED MD'S. ICU MD CAME TO SEE PT AND SAID PT NEEDS TO BE TRANSFERRED TO ICU. BELONGINGS WERE GATHERED AND GIVEN TO PTS . NON-REBREATHER MASK WITH 15L O2 WAS PLACED ON PT PER RESPIRATORY AND PT WAS TRANSFERRED TO ICU WITH STAFF AWAITING HER ARRIVAL.
[2020-12-28 18:52] LABS: D-DIMER 11.41 MG/L FEU (0-0.50); PARTIAL THROMBOPLASTIN TIME 29 SECONDS (22-32)
[2020-12-28 19:28] LABS: OXYGEN SATURATION (MIXED VEN) 79.5 % (60-80); PO2 MIXED VENOUS (TEMP COR) 41.3 mmHg (35-46)
[2020-12-28] MEDS: lactobacillus rhamnosus 10,000 MMU CELLS/CAPSULE NG SCH (20:00)
[2020-12-28] MEDS: sennosides/docusate sodium tablet NG SCH (20:00)
[2020-12-28] MEDS: docusate sodium 100mg/10ml UD cup NG SCH (20:00)
[2020-12-28] MEDS: nystatin 15 GM powder TP SCH (20:51)
[2020-12-28] MEDS: furosemide 40mg/4ml inj IV SCH (20:51)
[2020-12-29] VITALS (24 sets, daily range): BP systolic 88–174; BP diastolic 46–77
[2020-12-29] MEDS: piperacillin/tazo 4.5gm/100ml 100 ML IV SCH ×3 (00:42→16:07)
[2020-12-29] MEDS: lactulose 20gm/30ml cup NG SCH ×5 (01:20→19:43)
[2020-12-29] MEDS: acetaminophen 325mg tablet NG PRN (01:24)
[2020-12-29] MEDS: insulin Lispro (HumaLOG) vial - multi-dose SQ SCH ×4 (02:03→21:37)
[2020-12-29 02:09] LABS: BASOPHILS % (AUTO) 0.3 % (0-1); EOSINOPHILS % (AUTO) 0 % (0-6); HEMOGLOBIN 14.3 g/dl (12.0-16.0); LYMPHOCYTES # (AUTO) 1.7 X10'3 (1.1-4.8); LYMPHOCYTES % (AUTO) 14.3 % (21-51); MEAN CORPUSCULAR HEMOGLOBIN 29.8 PG (27.0-31.0); MEAN CORPUSCULAR HGB CONC 33.2 g/dL (33.0-36.5); MEAN CORPUSCULAR VOLUME 89.9 FL (78-98); MEAN PLATELET VOLUME 8.7 FL (7.4-10.4); MONOCYTES # (AUTO) 1.3 X10'3 (0-0.9); MONOCYTES % (AUTO) 11.3 % (2-12); NEUTROPHILS # (AUTO) 8.6 X10'3 (1.8-7.7); NEUTROPHILS % (AUTO) 74.1 % (42-75); PLATELET COUNT 187 X10'3 (140-440); RED BLOOD COUNT 4.78 X10'6 (4.20-5.60); WHITE BLOOD COUNT 11.7 X10'3 (4.5-11.0)
[2020-12-29 02:25] LABS: ALANINE AMINOTRANSFERASE 45 U/L (12-78); ALBUMIN/GLOBULIN RATIO 0.5 (1.1-1.5); ALKALINE PHOSPHATASE 60 IU/L (46-116); ANION GAP 9 (8-16); ASPARTATE AMINO TRANSFERASE 48 U/L (10-37); BILIRUBIN,TOTAL 0.8 MG/DL (0.1-1.0); BLOOD UREA NITROGEN 38 MG/DL (7-18); BUN/CREATININE RATIO 48.1 (6.6-38.0); CALCIUM 8.2 MG/DL (8.5-10.1); CHLORIDE 114 MMOL/L (99-107); CREATININE 0.79 MG/DL (0.40-0.90); GLUCOSE 166 MG/DL (70-104); POTASSIUM 2.8 MMOL/L (3.5-5.1); SODIUM 154 MMOL/L (135-145); TOTAL CARBON DIOXIDE 30.9 MMOL/L (24-32); TOTAL PROTEIN 5.8 G/DL (6.4-8.2); TRIGLYCERIDES 294 MG/DL (20-135); eGFR 71 ML/MIN
[2020-12-29 03:55] LABS: ABG BASE EXCESS 6.8 mmol/L (-2.0-2.0); ABG OXYGEN SATURATION 98.5 % (94-97); ABG PCO2 (T) 33.3 mmHg (32.0-45.0); ABG PO2 (T) 114.6 mmHg (75.0-100.0); ALLEN'S TEST POSITIVE; FCOHb 0.2 % (0.0-3.9); FMetHb 0.2 % (0.0-1.5); FO2Hb 98.1 % (94-97); PATIENT TEMPERATURE 36.6; PEEP 5 cm H2O; RESPIRATORY RATE 20 b/min; TIDAL VOLUME 425 mL; TOTAL HEMOGLOBIN 15.3 G/dl (12.0-16.0)
[2020-12-29] MEDS ORDERED: magnesium 2GM in 50ml NS 50 ML IV PRN (04:05)
[2020-12-29] MEDS ORDERED: magnesium 4gm in 100ml NS 100 ML IV PRN (04:05)
[2020-12-29] MEDS: potassium Cl 40MEQ/250ML bag 270 ML IV PRN ×2 (04:52→09:10)
[2020-12-29] MEDS: propofol 1000mg/100ml bottle 100 ML IV SCH (04:56)
--- NOTE | 2020-12-29 05:58 | NUR ---
Clamped OG suction to give lactulose and Tylenol. When unclamped approximately 2 hr later, 300 ml drained immediately.
--- NOTE | 2020-12-29 06:00 | NUR ---
Patient in room ICU 2039. I have received report from Evelia YANG and had the opportunity to ask questions and assume patient care.
[2020-12-29] MEDS: ipratropium/albuterol 3ml nebule IH SCH ×4 (07:17→19:42)
[2020-12-29] MEDS: normal saline 1000ml 1,000 ML IV SCH (07:35)
[2020-12-29] MEDS: furosemide 40mg/4ml inj IV SCH ×2 (08:26→19:44)
[2020-12-29] MEDS: sennosides/docusate sodium tablet NG SCH ×2 (08:27→19:44)
[2020-12-29] MEDS: lactobacillus rhamnosus 10,000 MMU CELLS/CAPSULE NG SCH (08:27)
[2020-12-29] MEDS: aspirin 81mg tab.chew NG SCH (08:27)
[2020-12-29] MEDS: lansoprazole 15mg solutab NG SCH (08:27)
[2020-12-29] MEDS: docusate sodium 100mg/10ml UD cup NG SCH ×2 (08:27→19:43)
[2020-12-29] MEDS: OLANZapine 5mg rapidly disint. tablet NG SCH (08:28)
[2020-12-29] MEDS: diltiazem 30mg tablet NG SCH ×3 (08:28→22:06)
[2020-12-29] MEDS: nystatin 15 GM powder TP SCH ×4 (08:29→22:06)
[2020-12-29] MEDS: primidone 50mg tablet NG SCH (08:29)
[2020-12-29] MEDS: tamoxifen 10mg tablet NG SCH (08:29)
[2020-12-29] MEDS: ARIPIPRAZOLE 10 MG TABLET NG SCH (08:30)
[2020-12-29] MEDS: enoxaparin 40mg/0.4ml syringe SQ SCH (08:30)
[2020-12-29] MEDS ORDERED: DEXMEDETOMIDINE 400MCG in NORMAL SALINE 100ml IV SCH (11:05)
--- NOTE | 2020-12-29 11:11 | NUR ---
[facility] Consult: Pt intubated s/p rapid response for respiratory failure and obtunded. Pt s/p appendectomy for ruptured appendix DX sepsis, HTN, and transaminitis. Hx dementia, T2DM A1C less than 7, and COPD per EMR. NG in place w/ MAP 85 this AM. [facility] 11 w/ abdomen lap site otherwise skin intact per EMR. LBM 8/14 receiving routine senna w/ lactulose Q6H started yesterday per EMR. Receiving propofol at 15ml/hr w/ TG 294 this AM; propofol to wean per dredge engineer at rounds. TF recs below given needs on vent. Will monitor for nutrition support needs this admit. Rec: 1. IF TF; Vital High Protein at 70ml/hr; to provide 1680ml volume, 1680 kcals, 1411ml free water, and 147g protein. 2. IF TF; additional water flush 200ml Q4H 3. IF TF; PALB Q /; daily wts 4. routine bowel care; 6 days constipation 5. upon extubation; advance diet per SHIELD INSTALLER recs to regular given poor PO hx prior to arrest w/ ALOC Addendum: 12/29/20 at [address] Amended: Links added.
[2020-12-29] MEDS: DEXMEDETOMIDINE 400MCG in NORMAL SALINE 100ml IV SCH ×2 (11:37→17:34)
[2020-12-29] MEDS: fentaNYL/PF 50MCG/1 ML 2ML syringe IV SCH ×3 (11:57→19:46)
[2020-12-29] MEDS: dextrose 5%-water 1,000 ML IV SCH (16:07)
[2020-12-29] MEDS ORDERED: albumin (Human) 5% 250ml 250 ML IV ONE (16:40)
--- NOTE | 2020-12-29 18:17 | NUR ---
Problems reprioritized. Patient report given, questions answered & plan of care reviewed with Amberly YANG.
--- NOTE | 2020-12-29 19:00 | NUR ---
Noted ope3n fissure on coccyx, excoriated perianal area and 2 possible DTI marci sacral area.
[2020-12-29] MEDS: mineral oil/petrolatum ophthal oint EACHEYE SCH (19:46)
--- NOTE | 2020-12-29 23:30 | NUR ---
Julia care, wounds photo'bang TRAN notified by Hallie Reed RN
[2020-12-30] VITALS (24 sets, daily range): BP systolic 83–155; BP diastolic 47–69
[2020-12-30] MEDS: DEXMEDETOMIDINE 400MCG in NORMAL SALINE 100ml IV SCH ×2 (00:15→07:33)
[2020-12-30] MEDS: piperacillin/tazo 4.5gm/100ml 100 ML IV SCH ×3 (00:25→15:57)
[2020-12-30] MEDS: lactulose 20gm/30ml cup NG SCH ×4 (02:19→20:06)
[2020-12-30] MEDS: mineral oil/petrolatum ophthal oint EACHEYE SCH ×4 (02:20→20:07)
[2020-12-30] MEDS: dextrose 5%-water 1,000 ML IV SCH ×3 (02:20→22:25)
[2020-12-30] MEDS: insulin regular, human U-100 3ml vial - multi-dose SQ SCH ×2 (02:45→08:15)
[2020-12-30 03:11] LABS: ABG BASE EXCESS 7.5 mmol/L (-2.0-2.0); ABG HCO3 29.7 mmol/L (22.0-26.0); ABG OXYGEN SATURATION 97.3 % (94-97); ABG PO2 (T) 89.7 mmHg (75.0-100.0); ALLEN'S TEST POSITIVE; FCOHb 0.1 % (0.0-3.9); FMetHb 0.2 % (0.0-1.5); PATIENT TEMPERATURE 37.1; PEEP 5 cm H2O; RESPIRATORY RATE 18 b/min; TIDAL VOLUME 425 mL; TOTAL HEMOGLOBIN 13.4 G/dl (12.0-16.0)
[2020-12-30] MEDS: fentaNYL/PF 50MCG/1 ML 2ML syringe IV SCH ×2 (03:56)
[2020-12-30 04:32] LABS: ALANINE AMINOTRANSFERASE 31 U/L (12-78); ALBUMIN 2.2 G/DL (3.4-5.0); ALBUMIN/GLOBULIN RATIO 0.8 (1.1-1.5); ALKALINE PHOSPHATASE 42 IU/L (46-116); ANION GAP 9 (8-16); ASPARTATE AMINO TRANSFERASE 29 U/L (10-37); BILIRUBIN,TOTAL 0.7 MG/DL (0.1-1.0); BLOOD UREA NITROGEN 41 MG/DL (7-18); BUN/CREATININE RATIO 43.6 (6.6-38.0); CALCIUM 7.4 MG/DL (8.5-10.1); CHLORIDE 116 MMOL/L (99-107); CREATININE 0.94 MG/DL (0.40-0.90); GLUCOSE 202 MG/DL (70-104); TOTAL CARBON DIOXIDE 30.6 MMOL/L (24-32); TOTAL PROTEIN 5.1 G/DL (6.4-8.2); eGFR 58 ML/MIN
[2020-12-30 04:36] LABS: POTASSIUM 2.6 MMOL/L (3.5-5.1); SODIUM 156 MMOL/L (135-145)
[2020-12-30 05:17] LABS: NUCLEATED RED BLOOD CELLS 2 /100WBC (0-0); PLATELET ESTIMATE NORMAL; TOTAL CELLS COUNTED 100
[2020-12-30 05:21] LABS: HEMATOCRIT 38.5 % (35.0-45.0); HEMOGLOBIN 12.6 g/dl (12.0-16.0); MEAN CORPUSCULAR HEMOGLOBIN 30.1 PG (27.0-31.0); MEAN CORPUSCULAR HGB CONC 32.9 g/dL (33.0-36.5); MEAN CORPUSCULAR VOLUME 91.6 FL (78-98); MEAN PLATELET VOLUME 8.9 FL (7.4-10.4); PLATELET COUNT 152 X10'3 (140-440); WHITE BLOOD COUNT 7.3 X10'3 (4.5-11.0)
--- NOTE | 2020-12-30 06:45 | NUR ---
Patient in room ICU 2039. I have received report from Amberly YANG and had the opportunity to ask questions and assume patient care.
[2020-12-30 06:46] LABS: MAGNESIUM 2.4 MG/DL (1.5-2.4); PHOSPHORUS 1.4 MG/DL (2.3-4.5)
[2020-12-30] MEDS: ipratropium/albuterol 3ml nebule IH SCH ×4 (07:13→19:28)
[2020-12-30] MEDS: diltiazem 30mg tablet NG SCH ×3 (07:21→20:08)
[2020-12-30] MEDS: potassium Cl 40MEQ/250ML bag 270 ML IV PRN (07:33)
[2020-12-30] MEDS: lansoprazole 15mg solutab NG SCH (07:34)
[2020-12-30] MEDS: sennosides/docusate sodium tablet NG SCH ×2 (07:34→20:07)
[2020-12-30] MEDS: docusate sodium 100mg/10ml UD cup NG SCH ×2 (07:34→20:06)
[2020-12-30] MEDS: enoxaparin 40mg/0.4ml syringe SQ SCH (07:34)
[2020-12-30] MEDS: tamoxifen 10mg tablet NG SCH (07:34)
[2020-12-30] MEDS: aspirin 81mg tab.chew NG SCH (07:35)
[2020-12-30] MEDS: ARIPIPRAZOLE 10 MG TABLET NG SCH (07:35)
[2020-12-30] MEDS: primidone 50mg tablet NG SCH (07:35)
[2020-12-30] MEDS: OLANZapine 5mg rapidly disint. tablet NG SCH (07:36)
[2020-12-30] MEDS: nystatin 15 GM powder TP SCH ×4 (07:37→20:09)
[2020-12-30] MEDS ORDERED: albumin (Human) 5% 250ml 250 ML IV ONE ×2 (11:35→13:55)
[2020-12-30] MEDS ORDERED: potassium phosphate inj 30 MMOL in normal saline 500ml IV soln 500 ML IV ONE (12:00)
--- NOTE | 2020-12-30 13:26 | NUR ---
Reassessment: Pt remains intubated and not receiving nutrition support. TC to RN with recommendation to start TF with MD approval. No TF consult at this time. Recommendations below remain in place as pt now day 5 with insufficient nutrition given poor PO intake prior to intubation. Noted pt with elevated serum Na of 156 MMOL/L, pt receiving D5 at 100 mL/hr providing 408 kcal/day. Pt also receiving PRN K replacement d/t low serum K of 2.6 MMOL/L. Pt documented as constipated with LBM 12/25. Pt receiving routine Senna-S BID, Colace BID, and Lactulose Q6H. Will continue to follow closely. Rec: 1. IF TF; continuous Vital High Protein at 70ml/hr; to provide 1680 ml total volume/day, 1680 kcal, 1411 ml water, and 147 g protein. 2. IF TF; additional 200 mL water flush Q4H; monitor serum Na 3. IF TF; PALB q /; daily wts 4. Routine bowel care 5. Consider BSS prior to diet advancement following extubation given poor PO hx prior to arrest with ALOC; recommend regular diet Addendum: 12/30/20 at [address] Amended: Links added.
--- NOTE | 2020-12-30 13:54 | NUR ---
Spoke with Dr. Mott at bedside, informed MD of low urine output 20-30/hr, and informed of KUB results. MD ordered albumin and reglan. Spoke with Dr. Alston and he did not want reglan ordered due to interaction with other medications pt is taking.
--- NOTE | 2020-12-30 13:55 | NUR ---
and daughter at bedside with pt. Updated on pts condition.
[2020-12-30] MEDS: insulin Lispro (HumaLOG) vial - multi-dose SQ SCH ×2 (14:58→20:55)
[2020-12-30] MEDS ORDERED: potassium phosphate inj 15 MMOL in NS 250ml IV soln 250 ML IV ONE (18:00)
--- NOTE | 2020-12-30 18:28 | NUR ---
Problems reprioritized. Patient report given, questions answered & plan of care reviewed with Evelia YANG.
--- NOTE | 2020-12-30 18:30 | NUR ---
Problems reprioritized. Patient report given, questions answered & plan of care reviewed with Evelia YANG.
[2020-12-30] MEDS: duloxetine 30mg CAPSULE.DR PO SCH (20:08)
[2020-12-31] VITALS (24 sets, daily range): BP systolic 86–121; BP diastolic 41–58
[2020-12-31] MEDS: piperacillin/tazo 4.5gm/100ml 100 ML IV SCH ×3 (00:22→15:04)
[2020-12-31] MEDS: acetaminophen 325mg tablet NG PRN (00:23)
[2020-12-31] MEDS: DEXMEDETOMIDINE 400MCG in NORMAL SALINE 100ml IV SCH ×4 (00:23→21:05)
[2020-12-31] MEDS: lactulose 20gm/30ml cup NG SCH ×4 (03:10→21:04)
[2020-12-31] MEDS: insulin Lispro (HumaLOG) vial - multi-dose SQ SCH ×2 (03:15→07:57)
[2020-12-31] MEDS: mineral oil/petrolatum ophthal oint EACHEYE SCH ×4 (03:15→21:04)
[2020-12-31 03:30] LABS: ALANINE AMINOTRANSFERASE 32 U/L (12-78); ALBUMIN 2.5 G/DL (3.4-5.0); ALBUMIN/GLOBULIN RATIO 0.9 (1.1-1.5); ALKALINE PHOSPHATASE 26 IU/L (46-116); ANION GAP 11 (8-16); ASPARTATE AMINO TRANSFERASE 40 U/L (10-37); BILIRUBIN,TOTAL 0.9 MG/DL (0.1-1.0); BLOOD UREA NITROGEN 29 MG/DL (7-18); BUN/CREATININE RATIO 34.5 (6.6-38.0); CALCIUM 7.2 MG/DL (8.5-10.1); CHLORIDE 109 MMOL/L (99-107); CREATININE 0.84 MG/DL (0.40-0.90); GLUCOSE 154 MG/DL (70-104); SODIUM 147 MMOL/L (135-145); TOTAL CARBON DIOXIDE 26.9 MMOL/L (24-32); TOTAL PROTEIN 5.4 G/DL (6.4-8.2); eGFR 66 ML/MIN
[2020-12-31 03:32] LABS: POTASSIUM 3.5 MMOL/L (3.5-5.1)
[2020-12-31 03:52] LABS: BASOPHILS # (AUTO) 0.1 X10'3 (0-0.2); BASOPHILS % (AUTO) 0.8 % (0-1); EOSINOPHILS # (AUTO) 0.2 X10'3 (0-0.9); EOSINOPHILS % (AUTO) 1.5 % (0-6); HEMATOCRIT 39.2 % (35.0-45.0); HEMOGLOBIN 12.9 g/dl (12.0-16.0); LYMPHOCYTES % (AUTO) 17.4 % (21-51); MEAN CORPUSCULAR HEMOGLOBIN 29.9 PG (27.0-31.0); MEAN CORPUSCULAR HGB CONC 32.8 g/dL (33.0-36.5); MEAN CORPUSCULAR VOLUME 91.1 FL (78-98); MEAN PLATELET VOLUME 9.6 FL (7.4-10.4); MONOCYTES # (AUTO) 0.4 X10'3 (0-0.9); MONOCYTES % (AUTO) 3.7 % (2-12); NEUTROPHILS # (AUTO) 8.7 X10'3 (1.8-7.7); NEUTROPHILS % (AUTO) 76.6 % (42-75); PLATELET COUNT 157 X10'3 (140-440); RED CELL DISTRIBUTION WIDTH 15.6 % (11.5-14.5); WHITE BLOOD COUNT 11.4 X10'3 (4.5-11.0)
[2020-12-31 04:17] LABS: ABG BASE EXCESS 2.8 mmol/L (-2.0-2.0); ABG HCO3 24.3 mmol/L (22.0-26.0); ABG OXYGEN SATURATION 95.9 % (94-97); ABG PCO2 (T) 28.8 mmHg (32.0-45.0); ABG PO2 (T) 76.7 mmHg (75.0-100.0); ALLEN'S TEST Yes; FCOHb 0.3 % (0.0-3.9); FMetHb 0.2 % (0.0-1.5); FO2Hb 95.4 % (94-97); PATIENT TEMPERATURE 37.1; PEEP 5 cm H2O; TOTAL HEMOGLOBIN 13.8 G/dl (12.0-16.0)
--- NOTE | 2020-12-31 06:33 | NUR ---
Patient in room ICU 2039. I have received report from Evelia YANG and had the opportunity to ask questions and assume patient care.
[2020-12-31] MEDS: ipratropium/albuterol 3ml nebule IH SCH ×4 (06:58→19:25)
[2020-12-31] MEDS: normal saline 1000ml 1,000 ML IV SCH (07:23)
[2020-12-31] MEDS: diltiazem 30mg tablet NG SCH ×3 (07:24→21:04)
[2020-12-31] MEDS: tamoxifen 10mg tablet NG SCH (07:31)
[2020-12-31] MEDS: lansoprazole 15mg solutab NG SCH (07:32)
[2020-12-31] MEDS: ARIPIPRAZOLE 10 MG TABLET NG SCH (07:32)
[2020-12-31] MEDS: primidone 50mg tablet NG SCH (07:32)
[2020-12-31] MEDS: docusate sodium 100mg/10ml UD cup NG SCH ×2 (07:32→21:04)
[2020-12-31] MEDS: aspirin 81mg tab.chew NG SCH (07:32)
[2020-12-31] MEDS: sennosides/docusate sodium tablet NG SCH ×2 (07:32→20:00)
[2020-12-31] MEDS: enoxaparin 40mg/0.4ml syringe SQ SCH (07:32)
[2020-12-31] MEDS: nystatin 15 GM powder TP SCH ×4 (07:32→21:04)
[2020-12-31] MEDS: OLANZapine 5mg rapidly disint. tablet NG SCH (07:33)
[2020-12-31] MEDS: dextrose 5%-water 1,000 ML IV SCH ×2 (07:34→12:21)
[2020-12-31] MEDS: duloxetine 30mg CAPSULE.DR PO SCH (07:36)
--- NOTE | 2020-12-31 08:08 | NUR ---
TF Consult: Pt remains intubated, w/ NGT. Per RN, pt no longer on propofol and they are still receiving D5 at 100ml/hr, though that will decrease to 50ml/hr as TF begin, recs below. LBM 12/25, pt remains constipated. Will monitor for TF tolerance and adjust needs as medically indicated. Rec: 1. Continuous TF using Vital High Protein at 70ml/hr; to provide 1680 ml total volume/day, 1680 kcal, 1411 ml water, and 147 g protein. 2. Additional 200 mL water flush Q4H; monitor serum Na 3. PALB q M/TH; daily wts 4. Routine bowel care 5. Monitor for TF tolerance Addendum: 12/31/20 at [address] Rec: 1. Continuous TF using Vital High Protein at 70ml/hr; to provide 1680 ml total volume/day, 1680 kcal, 1411 ml water, and 147 g protein. 2. Additional 200 mL water flush Q4H; monitor serum Na 3. PALB q M/TH; daily wts 4. Routine bowel care 5. Monitor for TF tolerance 6. Consider BSS prior to diet advancement following extubation given poor PO hx prior to arrest with ALOC; recommend regular diet Addendum: 12/31/20 at [address] Amended: Links added.
[2020-12-31 08:44] LABS: NUCLEATED RED BLOOD CELLS 1 /100WBC (0-0); TOTAL CELLS COUNTED 100
[2020-12-31 08:45] LABS: PLATELET ESTIMATE NORMAL
[2020-12-31] MEDS: propofol 1000mg/100ml bottle 100 ML IV SCH (13:46)
[2020-12-31] MEDS: insulin regular, human U-100 3ml vial - multi-dose SQ SCH ×2 (15:02→21:21)
--- NOTE | 2020-12-31 15:57 | NUR ---
Informed Dr. Alston regarding yeast in urine. to assess, no new orders at this time.
--- NOTE | 2020-12-31 18:21 | NUR ---
Problems reprioritized. Patient report given, questions answered & plan of care reviewed with Westley YANG.
--- NOTE | 2020-12-31 18:57 | NUR ---
I have received report and assumed care of pt, pt resting in bed rise and fall of chest cavity equile and symmetrical, no s/sx of distress.
[2021-01-01] VITALS (24 sets, daily range): BP systolic 94–168; BP diastolic 37–75
[2021-01-01] MEDS: piperacillin/tazo 4.5gm/100ml 100 ML IV SCH (01:00)
[2021-01-01] MEDS: mineral oil/petrolatum ophthal oint EACHEYE SCH ×4 (03:00→20:55)
[2021-01-01] MEDS: lactulose 20gm/30ml cup NG SCH ×4 (03:31→20:00)
[2021-01-01] MEDS: acetaminophen 325mg tablet NG PRN (03:31)
[2021-01-01] MEDS: insulin regular, human U-100 3ml vial - multi-dose SQ SCH ×4 (03:34→21:06)
[2021-01-01 04:05] LABS: ABG BASE EXCESS 1.2 mmol/L (-2.0-2.0); ABG HCO3 22.7 mmol/L (22.0-26.0); ABG PCO2 (T) 28.9 mmHg (32.0-45.0); ABG PO2 (T) 92.5 mmHg (75.0-100.0); ALLEN'S TEST POSITIVE; FCOHb 0.4 % (0.0-3.9); FMetHb 0.3 % (0.0-1.5); FO2Hb 96.3 % (94-97); PEEP 5 cm H2O; RESPIRATORY RATE 10 b/min; TIDAL VOLUME 425 mL; TOTAL HEMOGLOBIN 13.7 G/dl (12.0-16.0)
[2021-01-01 05:08] LABS: ABG BASE EXCESS 0.7 mmol/L (-2.0-2.0); ABG HCO3 21.1 mmol/L (22.0-26.0); ABG OXYGEN SATURATION 98.8 % (94-97); ABG PCO2 (T) 23.9 mmHg (32.0-45.0); ABG PO2 (T) 144.8 mmHg (75.0-100.0); ALLEN'S TEST POSITIVE; FCOHb 0.3 % (0.0-3.9); FMetHb 0.2 % (0.0-1.5); FO2Hb 98.3 % (94-97); PATIENT TEMPERATURE 37.5; PEEP 5 cm H2O; RESPIRATORY RATE 16 b/min; TIDAL VOLUME 350 mL; TOTAL HEMOGLOBIN 13.3 G/dl (12.0-16.0)
[2021-01-01] MEDS ORDERED: FENTANYL-0.9 % NACL/PF 100 ML IV SCH (05:20)
--- NOTE | 2021-01-01 06:24 | NUR ---
Patient in room ICU 2039. I have received report from THEODORA RN and had the opportunity to ask questions and assume patient care.
--- NOTE | 2021-01-01 07:04 | NUR ---
Patient adamantly refusing blood draw despite education.
[2021-01-01] MEDS ORDERED: acetaZOLAMIDE 250mg tablet PO ONE (07:05)
[2021-01-01] MEDS: ipratropium/albuterol 3ml nebule IH SCH ×4 (07:09→19:34)
[2021-01-01] MEDS: OLANZapine 5mg rapidly disint. tablet NG SCH (08:29)
[2021-01-01] MEDS: primidone 50mg tablet NG SCH (08:29)
[2021-01-01] MEDS: lansoprazole 15mg solutab NG SCH (08:29)
[2021-01-01] MEDS: aspirin 81mg tab.chew NG SCH (08:29)
[2021-01-01] MEDS: sennosides/docusate sodium tablet NG SCH ×2 (08:29→20:00)
[2021-01-01] MEDS: docusate sodium 100mg/10ml UD cup NG SCH ×2 (08:30→20:00)
[2021-01-01] MEDS: diltiazem 30mg tablet NG SCH ×3 (08:30→20:55)
[2021-01-01] MEDS: tamoxifen 10mg tablet NG SCH (08:30)
[2021-01-01] MEDS: ARIPIPRAZOLE 10 MG TABLET NG SCH (08:30)
[2021-01-01] MEDS: meropenem inj 1 GM in normal saline 100ml IV soln 100 ML IV SCH ×3 (08:31→23:48)
[2021-01-01] MEDS: enoxaparin 40mg/0.4ml syringe SQ SCH (08:31)
[2021-01-01] MEDS: fluconazole/NS 400mg/200ml bag 200 ML IV SCH (08:32)
[2021-01-01] MEDS: nystatin 15 GM powder TP SCH ×4 (08:32→20:55)
[2021-01-01] MEDS: DEXMEDETOMIDINE 400MCG in NORMAL SALINE 100ml IV SCH (08:33)
[2021-01-01] MEDS: HYDROmorphone inj. 0.5 MG/0.5 ML DISP.SYRIN IV PRN ×3 (09:57→20:55)
[2021-01-01] MEDS: diatr meglu/diatrizoate 30ml oral sol.-(3 dose) bottle PO SCH (20:55)
[2021-01-02] VITALS (24 sets, daily range): BP systolic 124–184; BP diastolic 41–71
[2021-01-02] MEDS: HYDROmorphone inj. 0.5 MG/0.5 ML DISP.SYRIN IV PRN (00:56)
[2021-01-02] MEDS: lactulose 20gm/30ml cup NG SCH ×4 (01:03→20:00)
[2021-01-02] MEDS: mineral oil/petrolatum ophthal oint EACHEYE SCH ×4 (01:03→20:18)
[2021-01-02] MEDS: insulin regular, human U-100 3ml vial - multi-dose SQ SCH ×3 (02:59→20:38)
[2021-01-02 03:41] LABS: BASOPHILS % (AUTO) 0.1 % (0-1); EOSINOPHILS # (AUTO) 0.1 X10'3 (0-0.9); EOSINOPHILS % (AUTO) 0.6 % (0-6); HEMATOCRIT 37.7 % (35.0-45.0); HEMOGLOBIN 12.5 g/dl (12.0-16.0); LYMPHOCYTES # (AUTO) 1.6 X10'3 (1.1-4.8); LYMPHOCYTES % (AUTO) 6.3 % (21-51); MEAN CORPUSCULAR HEMOGLOBIN 29.9 PG (27.0-31.0); MEAN CORPUSCULAR HGB CONC 33.1 g/dL (33.0-36.5); MEAN CORPUSCULAR VOLUME 90.3 FL (78-98); MEAN PLATELET VOLUME 10.1 FL (7.4-10.4); MONOCYTES # (AUTO) 0.8 X10'3 (0-0.9); MONOCYTES % (AUTO) 3.3 % (2-12); NEUTROPHILS % (AUTO) 89.7 % (42-75); PLATELET COUNT 173 X10'3 (140-440); RED BLOOD COUNT 4.18 X10'6 (4.20-5.60); RED CELL DISTRIBUTION WIDTH 14.6 % (11.5-14.5); WHITE BLOOD COUNT 24.5 X10'3 (4.5-11.0)
[2021-01-02 04:01] LABS: ALANINE AMINOTRANSFERASE 25 U/L (12-78); ALBUMIN/GLOBULIN RATIO 0.5 (1.1-1.5); ALKALINE PHOSPHATASE 46 IU/L (46-116); ANION GAP 10 (8-16); ASPARTATE AMINO TRANSFERASE 28 U/L (10-37); BILIRUBIN,TOTAL 0.6 MG/DL (0.1-1.0); BLOOD UREA NITROGEN 14 MG/DL (7-18); BUN/CREATININE RATIO 20.6 (6.6-38.0); CALCIUM 7.8 MG/DL (8.5-10.1); CHLORIDE 106 MMOL/L (99-107); CREATININE 0.68 MG/DL (0.40-0.90); GLUCOSE 170 MG/DL (70-104); MAGNESIUM 2.2 MG/DL (1.5-2.4); POTASSIUM 2.4 MMOL/L (3.5-5.1); SODIUM 143 MMOL/L (135-145); TOTAL CARBON DIOXIDE 26.6 MMOL/L (24-32); TOTAL PROTEIN 5.7 G/DL (6.4-8.2); eGFR 84 ML/MIN
[2021-01-02] MEDS: potassium Cl 40MEQ/250ML bag 270 ML IV PRN ×2 (04:30→06:23)
--- NOTE | 2021-01-02 06:11 | NUR ---
Problems reprioritized. Patient report given, questions answered & plan of care reviewed with TREY Miller.
[2021-01-02] MEDS: dextrose 5%-water 1,000 ML IV SCH ×2 (06:19→19:59)
[2021-01-02] MEDS ORDERED: HYDROmorphone inj. 0.5 MG/0.5 ML DISP.SYRIN IV PRN (06:30)
[2021-01-02] MEDS: DEXMEDETOMIDINE 400MCG in NORMAL SALINE 100ml IV SCH ×2 (06:58→17:10)
[2021-01-02] MEDS: aspirin 81mg tab.chew NG SCH (07:12)
[2021-01-02] MEDS: sennosides/docusate sodium tablet NG SCH ×2 (07:12→20:00)
[2021-01-02] MEDS: ARIPIPRAZOLE 10 MG TABLET NG SCH (07:12)
[2021-01-02] MEDS: primidone 50mg tablet NG SCH (07:12)
[2021-01-02] MEDS: lansoprazole 15mg solutab NG SCH (07:12)
[2021-01-02] MEDS: enoxaparin 40mg/0.4ml syringe SQ SCH (07:13)
[2021-01-02] MEDS: OLANZapine 5mg rapidly disint. tablet NG SCH (07:13)
[2021-01-02] MEDS: diltiazem 30mg tablet NG SCH ×3 (07:13→20:18)
[2021-01-02] MEDS: meropenem inj 1 GM in normal saline 100ml IV soln 100 ML IV SCH ×2 (07:21→15:58)
[2021-01-02] MEDS: ipratropium/albuterol 3ml nebule IH SCH ×4 (07:30→19:53)
[2021-01-02] MEDS: normal saline 1000ml 1,000 ML IV SCH (07:35)
[2021-01-02] MEDS: nystatin 15 GM powder TP SCH ×4 (08:00→20:19)
[2021-01-02] MEDS: docusate sodium 100mg/10ml UD cup NG SCH ×2 (08:00→20:00)
[2021-01-02] MEDS ORDERED: pantoprazole 40 MG vial IV SCH (08:00)
[2021-01-02] MEDS: diatr meglu/diatrizoate 30ml oral sol.-(3 dose) bottle PO SCH ×2 (08:08→10:10)
[2021-01-02] MEDS: fluconazole/NS 400mg/200ml bag 200 ML IV SCH (08:10)
[2021-01-02] MEDS: tamoxifen 10mg tablet NG SCH (09:24)
[2021-01-02] MEDS ORDERED: iohexol 300mg/ml 100ml inj. ONE (09:46)
[2021-01-02 10:40] LABS: C DIFF ANTIGEN NEGATIVE (NEGATIVE); C DIFF SPECIMEN=DIARRHEA? ACCEPTABLE; C DIFFICILE TOXINS A&B NEGATIVE (Neg)
[2021-01-02 11:41] LABS: ABG BASE EXCESS -0.2 mmol/L (-2.0-2.0); ABG HCO3 21.7 mmol/L (22.0-26.0); ABG OXYGEN SATURATION 95.8 % (94-97); ABG PCO2 (T) 27.3 mmHg (32.0-45.0); ABG PO2 (T) 71.3 mmHg (75.0-100.0); ALLEN'S TEST POSITIVE; FCOHb 0.1 % (0.0-3.9); FMetHb 0.3 % (0.0-1.5); FO2Hb 95.4 % (94-97); PATIENT TEMPERATURE 36.6; RESPIRATORY RATE 19 b/min; TIDAL VOLUME 450 mL; TOTAL HEMOGLOBIN 12.9 G/dl (12.0-16.0)
--- NOTE | 2021-01-02 18:11 | NUR ---
Patient in room ICU 2039. I have received report from Angela YANG and had the opportunity to ask questions and assume patient care.
[2021-01-03] VITALS (24 sets, daily range): BP systolic 15–176; BP diastolic 55–95
[2021-01-03] MEDS: meropenem inj 1 GM in normal saline 100ml IV soln 100 ML IV SCH ×3 (00:23→16:17)
[2021-01-03] MEDS: lactulose 20gm/30ml cup NG SCH ×4 (02:00→20:00)
[2021-01-03] MEDS: mineral oil/petrolatum ophthal oint EACHEYE SCH ×3 (02:08→13:50)
[2021-01-03] MEDS: insulin regular, human U-100 3ml vial - multi-dose SQ SCH (02:38)
[2021-01-03 02:50] LABS: BASOPHILS # (AUTO) 0.1 X10'3 (0-0.2); BASOPHILS % (AUTO) 0.3 % (0-1); EOSINOPHILS # (AUTO) 0.1 X10'3 (0-0.9); EOSINOPHILS % (AUTO) 0.7 % (0-6); LYMPHOCYTES # (AUTO) 1.2 X10'3 (1.1-4.8); LYMPHOCYTES % (AUTO) 6.2 % (21-51); MEAN CORPUSCULAR HEMOGLOBIN 29.9 PG (27.0-31.0); MEAN CORPUSCULAR HGB CONC 32.5 g/dL (33.0-36.5); MEAN CORPUSCULAR VOLUME 91.9 FL (78-98); MEAN PLATELET VOLUME 10.1 FL (7.4-10.4); MONOCYTES # (AUTO) 0.9 X10'3 (0-0.9); MONOCYTES % (AUTO) 4.7 % (2-12); NEUTROPHILS # (AUTO) 17.3 X10'3 (1.8-7.7); NEUTROPHILS % (AUTO) 88.1 % (42-75); PLATELET COUNT 201 X10'3 (140-440); RED BLOOD COUNT 4.02 X10'6 (4.20-5.60); RED CELL DISTRIBUTION WIDTH 15.1 % (11.5-14.5); WHITE BLOOD COUNT 19.6 X10'3 (4.5-11.0)
[2021-01-03 03:07] LABS: ALANINE AMINOTRANSFERASE 21 U/L (12-78); ALBUMIN 1.8 G/DL (3.4-5.0); ALBUMIN/GLOBULIN RATIO 0.5 (1.1-1.5); ALKALINE PHOSPHATASE 43 IU/L (46-116); ANION GAP 12 (8-16); ASPARTATE AMINO TRANSFERASE 29 U/L (10-37); BILIRUBIN,TOTAL 0.7 MG/DL (0.1-1.0); BLOOD UREA NITROGEN 14 MG/DL (7-18); CALCIUM 7.7 MG/DL (8.5-10.1); CHLORIDE 109 MMOL/L (99-107); CREATININE 0.56 MG/DL (0.40-0.90); GLUCOSE 180 MG/DL (70-104); MAGNESIUM 2.2 MG/DL (1.5-2.4); SODIUM 145 MMOL/L (135-145); TOTAL PROTEIN 5.6 G/DL (6.4-8.2); eGFR > 90 ML/MIN
[2021-01-03 03:09] LABS: POTASSIUM 2.9 MMOL/L (3.5-5.1)
[2021-01-03] MEDS: DEXMEDETOMIDINE 400MCG in NORMAL SALINE 100ml IV SCH ×3 (03:22→23:46)
[2021-01-03] MEDS: potassium Cl 40MEQ/250ML bag 270 ML IV PRN ×2 (03:59→06:09)
[2021-01-03] MEDS ORDERED: POTASSIUM BICARB 20meq eff tab 20 MEQ TABLET.EFF NG STA (05:47)
--- NOTE | 2021-01-03 06:21 | NUR ---
Problems reprioritized. Patient report given, questions answered & plan of care reviewed with Balbina YANG.
[2021-01-03] MEDS: ipratropium/albuterol 3ml nebule IH SCH ×4 (07:00→19:38)
[2021-01-03] MEDS: sennosides/docusate sodium tablet NG SCH ×2 (07:50→20:00)
[2021-01-03] MEDS: docusate sodium 100mg/10ml UD cup NG SCH ×2 (07:50→20:00)
[2021-01-03] MEDS: fluconazole/NS 400mg/200ml bag 200 ML IV SCH (07:57)
[2021-01-03] MEDS: ARIPIPRAZOLE 10 MG TABLET NG SCH (08:06)
[2021-01-03] MEDS: diltiazem 30mg tablet NG SCH ×3 (08:06→21:38)
[2021-01-03] MEDS: tamoxifen 10mg tablet NG SCH (08:06)
[2021-01-03] MEDS: primidone 50mg tablet NG SCH (08:06)
[2021-01-03] MEDS: aspirin 81mg tab.chew NG SCH (08:06)
[2021-01-03] MEDS: lansoprazole 15mg solutab NG SCH (08:06)
[2021-01-03] MEDS: OLANZapine 5mg rapidly disint. tablet NG SCH (08:06)
[2021-01-03] MEDS: enoxaparin 40mg/0.4ml syringe SQ SCH (08:07)
[2021-01-03] MEDS: nystatin 15 GM powder TP SCH ×4 (08:07→21:39)
[2021-01-03 08:45] LABS: ABG BASE EXCESS 0.6 mmol/L (-2.0-2.0); ABG HCO3 22.7 mmol/L (22.0-26.0); ABG OXYGEN SATURATION 95.7 % (94-97); ABG PCO2 (T) 29.2 mmHg (32.0-45.0); ABG PO2 (T) 72.6 mmHg (75.0-100.0); ALLEN'S TEST POSITIVE; FCOHb 0.4 % (0.0-3.9); FMetHb 0.3 % (0.0-1.5); TOTAL HEMOGLOBIN 13.3 G/dl (12.0-16.0)
[2021-01-03] MEDS ORDERED: furosemide 40mg/4ml inj IV ONE (10:05)
--- NOTE | 2021-01-03 11:14 | NUR ---
F/u 01/03: Pt extubated this AM pending BLUEPRINT DUPLICATOR BSS recs and to advance to clears if passes per adjustment examiner at rounds. LBM 01/02 first significant BM yesterday following prior 8 days constipation. K 2.9 up from 2.4 yesterday receiving electrolyte replacement per protocol. Will monitor for PO diet advancement and tolerance following extubation. Rec: 1. Advance diet as medically indicated per BLUEPRINT DUPLICATOR/MD to regular; hx DM though A1C 5.6 per EMR 2. monitor for ONS needs pending PO hx 3. Routine bowel care; first BM 01/02 following prior 8 days constipation 4. weekly wts Addendum: 01/03/21 at [address] Amended: Links added.
[2021-01-03] MEDS: dextrose 5%-water 1,000 ML IV SCH (15:59)
--- NOTE | 2021-01-03 18:15 | NUR ---
Patient in room ICU 2039. I have received report from Balbina YANG and had the opportunity to ask questions and assume patient care.
[2021-01-03] MEDS ORDERED: lactobacillus rhamnosus 10,000 MMU CELLS/CAPSULE PO SCH (20:00)
[2021-01-03] MEDS: furosemide 40mg/4ml inj IV SCH (21:38)
[2021-01-04] VITALS (21 sets, daily range): BP systolic 127–183; BP diastolic 55–87
[2021-01-04] MEDS: meropenem inj 1 GM in normal saline 100ml IV soln 100 ML IV SCH ×3 (00:20→16:26)
[2021-01-04] MEDS: lactulose 20gm/30ml cup NG SCH ×2 (02:00→08:00)
[2021-01-04 04:55] LABS: BASOPHILS % (AUTO) 0.2 % (0-1); EOSINOPHILS # (AUTO) 0.1 X10'3 (0-0.9); EOSINOPHILS % (AUTO) 0.5 % (0-6); HEMATOCRIT 36.2 % (35.0-45.0); HEMOGLOBIN 11.8 g/dl (12.0-16.0); LYMPHOCYTES # (AUTO) 1.4 X10'3 (1.1-4.8); LYMPHOCYTES % (AUTO) 7.9 % (21-51); MEAN CORPUSCULAR HEMOGLOBIN 29.8 PG (27.0-31.0); MEAN CORPUSCULAR HGB CONC 32.6 g/dL (33.0-36.5); MEAN CORPUSCULAR VOLUME 91.2 FL (78-98); MEAN PLATELET VOLUME 9.4 FL (7.4-10.4); MONOCYTES # (AUTO) 1.3 X10'3 (0-0.9); MONOCYTES % (AUTO) 7.4 % (2-12); NEUTROPHILS # (AUTO) 15.2 X10'3 (1.8-7.7); PLATELET COUNT 247 X10'3 (140-440); RED BLOOD COUNT 3.97 X10'6 (4.20-5.60)
[2021-01-04 05:42] LABS: ALANINE AMINOTRANSFERASE 28 U/L (12-78); ALBUMIN 1.8 G/DL (3.4-5.0); ALBUMIN/GLOBULIN RATIO 0.5 (1.1-1.5); ALKALINE PHOSPHATASE 50 IU/L (46-116); ANION GAP 11 (8-16); ASPARTATE AMINO TRANSFERASE 34 U/L (10-37); BILIRUBIN,TOTAL 0.9 MG/DL (0.1-1.0); BLOOD UREA NITROGEN 15 MG/DL (7-18); BUN/CREATININE RATIO 27.8 (6.6-38.0); CALCIUM 7.7 MG/DL (8.5-10.1); CHLORIDE 113 MMOL/L (99-107); CREATININE 0.54 MG/DL (0.40-0.90); GLUCOSE 151 MG/DL (70-104); MAGNESIUM 2.1 MG/DL (1.5-2.4); POTASSIUM 3.4 MMOL/L (3.5-5.1); SODIUM 148 MMOL/L (135-145); TOTAL CARBON DIOXIDE 24.3 MMOL/L (24-32); TOTAL PROTEIN 5.7 G/DL (6.4-8.2); eGFR > 90 ML/MIN
--- NOTE | 2021-01-04 06:33 | NUR ---
Problems reprioritized. Patient report given, questions answered & plan of care reviewed with Evelia YANG.
[2021-01-04] MEDS: ipratropium/albuterol 3ml nebule IH SCH ×4 (07:15→20:41)
[2021-01-04] MEDS: normal saline 1000ml 1,000 ML IV SCH (07:35)
[2021-01-04] MEDS: docusate sodium 100mg/10ml UD cup NG SCH (08:00)
[2021-01-04] MEDS: sennosides/docusate sodium tablet NG SCH (08:00)
[2021-01-04] MEDS: enoxaparin 40mg/0.4ml syringe SQ SCH (08:59)
[2021-01-04] MEDS: nystatin 15 GM powder TP SCH ×4 (08:59→22:26)
[2021-01-04] MEDS: ARIPIPRAZOLE 10 MG TABLET NG SCH (09:00)
[2021-01-04] MEDS: primidone 50mg tablet NG SCH (09:00)
[2021-01-04] MEDS: aspirin 81mg tab.chew NG SCH (09:00)
[2021-01-04] MEDS: lansoprazole 15mg solutab NG SCH (09:00)
[2021-01-04] MEDS: diltiazem 30mg tablet NG SCH (09:01)
[2021-01-04] MEDS: OLANZapine 5mg rapidly disint. tablet NG SCH (09:01)
[2021-01-04] MEDS: furosemide 40mg/4ml inj IV SCH ×2 (09:01→19:56)
[2021-01-04] MEDS: tamoxifen 10mg tablet NG SCH (09:02)
[2021-01-04] MEDS: fluconazole/NS 400mg/200ml bag 200 ML IV SCH (09:02)
[2021-01-04] MEDS: potassium Cl 40MEQ/250ML bag 270 ML IV PRN (09:05)
[2021-01-04] MEDS: DEXMEDETOMIDINE 400MCG in NORMAL SALINE 100ml IV SCH (09:58)
[2021-01-04] MEDS ORDERED: acetaminophen 325mg tablet PO PRN ×2 (11:13)
[2021-01-04] MEDS ORDERED: dextrose ORAL solution 15 GM/59 ML bottle PO PRN ×2 (11:14→11:17)
[2021-01-04] MEDS ORDERED: docusate sodium 100mg/10ml UD cup PO SCH (11:18)
[2021-01-04] MEDS ORDERED: mag hydrox/Alum hydrox/simeth 30ml oral suspension PO PRN (11:18)
[2021-01-04] MEDS ORDERED: sennosides/docusate sodium tablet PO SCH (11:19)
[2021-01-04] MEDS ORDERED: temazepam 15mg capsule PO PRN (11:19)
[2021-01-04] MEDS ORDERED: magnesium hydroxide 30ml (MOM) UD suspension PO PRN (11:19)
[2021-01-04] MEDS: dextrose 5%-water 1,000 ML IV SCH (11:59)
[2021-01-04] MEDS: diltiazem 30mg tablet PO SCH ×2 (13:42→22:26)
[2021-01-04] MEDS ORDERED: hydrALAZINE 20mg/ml inj. IV PRN (13:55)
[2021-01-04] MEDS ORDERED: potassium Cl 40MEQ/1/2NS 520ml 520 ML IV PRN (14:00)
[2021-01-04] MEDS ORDERED: potassium Cl 20 mEq SR tablet PO PRN ×2 (14:00)
--- NOTE | 2021-01-04 16:08 | NUR ---
Problems reprioritized. Patient report given, questions answered & plan of care reviewed with TREY Tyson.
[2021-01-05] VITALS (10 sets, daily range): BP systolic 130–161; BP diastolic 55–79
--- NOTE | 2021-01-05 01:00 | NUR ---
Cullen Sales regarding hypo/hyperglycemic protocol orders for pt. Addendum: 01/06/21 at 0140 by Maranda Javier RN MD martin at [id number] 01/05/21 no new orders received.
[2021-01-05] MEDS: meropenem inj 1 GM in normal saline 100ml IV soln 100 ML IV SCH ×3 (05:15→21:33)
--- NOTE | 2021-01-05 06:54 | NUR ---
Patient in room PCU 3026. I have received report from Pauline YANG and had the opportunity to ask questions and assume patient care. Pt sitting up in bed semi fowlers, Bipap in place at 45% O2, SRx2, BLL, CL within reach, no s/sx acute distress.
[2021-01-05] MEDS: ipratropium/albuterol 3ml nebule IH SCH ×4 (07:26→19:33)
[2021-01-05 07:55] LABS: BASOPHILS % (AUTO) 0.2 % (0-1); EOSINOPHILS # (AUTO) 0.1 X10'3 (0-0.9); EOSINOPHILS % (AUTO) 0.5 % (0-6); HEMATOCRIT 38.9 % (35.0-45.0); HEMOGLOBIN 12.6 g/dl (12.0-16.0); LYMPHOCYTES # (AUTO) 1.3 X10'3 (1.1-4.8); LYMPHOCYTES % (AUTO) 9.1 % (21-51); MEAN CORPUSCULAR HEMOGLOBIN 29.8 PG (27.0-31.0); MEAN CORPUSCULAR HGB CONC 32.5 g/dL (33.0-36.5); MEAN CORPUSCULAR VOLUME 91.9 FL (78-98); MEAN PLATELET VOLUME 9.8 FL (7.4-10.4); MONOCYTES # (AUTO) 1.1 X10'3 (0-0.9); MONOCYTES % (AUTO) 7.6 % (2-12); NEUTROPHILS # (AUTO) 12.2 X10'3 (1.8-7.7); NEUTROPHILS % (AUTO) 82.6 % (42-75); PLATELET COUNT 295 X10'3 (140-440); RED BLOOD COUNT 4.23 X10'6 (4.20-5.60); RED CELL DISTRIBUTION WIDTH 15.8 % (11.5-14.5); WHITE BLOOD COUNT 14.8 X10'3 (4.5-11.0)
[2021-01-05 08:20] LABS: ALANINE AMINOTRANSFERASE 34 U/L (12-78); ALBUMIN 1.9 G/DL (3.4-5.0); ALBUMIN/GLOBULIN RATIO 0.4 (1.1-1.5); ALKALINE PHOSPHATASE 61 IU/L (46-116); ANION GAP 13 (8-16); ASPARTATE AMINO TRANSFERASE 50 U/L (10-37); BILIRUBIN,TOTAL 0.7 MG/DL (0.1-1.0); BLOOD UREA NITROGEN 20 MG/DL (7-18); BUN/CREATININE RATIO 42.6 (6.6-38.0); CALCIUM 8.3 MG/DL (8.5-10.1); CHLORIDE 112 MMOL/L (99-107); CREATININE 0.47 MG/DL (0.40-0.90); GLUCOSE 156 MG/DL (70-104); MAGNESIUM 2.4 MG/DL (1.5-2.4); SODIUM 145 MMOL/L (135-145); TOTAL CARBON DIOXIDE 20.5 MMOL/L (24-32); TOTAL PROTEIN 6.4 G/DL (6.4-8.2); TRIGLYCERIDES 139 MG/DL (20-135); eGFR > 90 ML/MIN
[2021-01-05 08:23] LABS: POTASSIUM 4.3 MMOL/L (3.5-5.1)
--- NOTE | 2021-01-05 08:23 | NUR ---
Pharmacy paged for missing am meds for administration. "morning meds: Tomoxifen, primidone, olanzapine (ODT) and meropenem inj. needed for am administration. Please send as soon as possible. Thanks, -Maranda #[id number]" will administer when available from pharmacy.
--- NOTE | 2021-01-05 09:10 | NUR ---
Pharmacy called and stated pt's meds most likely down in ICU where pt was transferred to. tech sent to retrieve meds. no meropenem dose in ICU per ICU nurse. Called pharmacy to notify. Addendum: 01/05/21 at 0959 by Maranda Javier RN message sent to pharmacy regarding meropenem dose. dose will be adminstered when available.
--- NOTE | 2021-01-05 09:49 | NUR ---
Reassessment: Pt A/O x 2 and confused per physical assessment. Pt s/p f/u BSS today with ST recs to continue full liquid diet. Pt with average 25-50% PO intake not meeting estimated nutrient needs, though unlikely to meet estimated nutrient needs even if PO intake improves given current diet order. Recommend Ensure Enlive to optimize PO intake. ONS to be sent pending MD verification in EMR. LBM 01/03 documented with diarrhea and a rectal tube though no documentation of stool output in I&O. Noted bowel care has been discontinued. Will continue to follow closely. Rec: 1. Advance diet to regular as medically indicated per ST recs; hx DM though A1C 5.6 per EMR 2. Ensure Enlive TID, pending MD approval in EMR 3. Bowel care per rx 4. Weekly scaled weights Addendum: 01/05/21 at [address] Amended: Links added.
[2021-01-05] MEDS: tamoxifen 10mg tablet PO SCH (10:01)
[2021-01-05] MEDS: OLANZapine 5mg rapidly disint. tablet NG SCH (10:03)
[2021-01-05] MEDS: primidone 50mg tablet PO SCH (10:03)
[2021-01-05] MEDS: nystatin 15 GM powder TP SCH ×4 (10:04→21:46)
[2021-01-05] MEDS: diltiazem 30mg tablet PO SCH ×3 (10:05→21:33)
[2021-01-05] MEDS: enoxaparin 40mg/0.4ml syringe SQ SCH (10:05)
[2021-01-05] MEDS: furosemide 40mg/4ml inj IV SCH ×2 (10:06→21:32)
[2021-01-05] MEDS: aspirin 81mg tab.chew PO SCH (10:06)
[2021-01-05] MEDS: lansoprazole 15mg solutab PO SCH (10:06)
[2021-01-05] MEDS: fluconazole/NS 400mg/200ml bag 200 ML IV SCH (10:07)
[2021-01-05] MEDS: ARIPIPRAZOLE 10 MG TABLET PO SCH (11:08)
--- NOTE | 2021-01-05 14:00 | NUR ---
Pt wanting DNR/DNI. Dr. Nuñez paged. "RE: Torri Kovacs: RM [id number]: pt expressed she wants to be DNR/DNI. pt stated this to two separate nurses. "I am tired. i do not want to do all this anymore. If i go down hill i do not want you to code me..." -Maranda #[id number] " Pt stated to this nurse and then again independently to Shawna YANG. "no i do not want to have CPR. No i do not want to have the breathing tube. I am getting tired. the scriptures tell me i will go to [facility] and be able to run and be free of pain. i am ok with this. I do not think i will make it to the winter. I do not want to this all this anymore. if something happens, if i go down hill, i do not want you to code me."
--- NOTE | 2021-01-05 16:04 | NUR ---
Dr Nuñez called back and acknowledged pt's desire for DNR/DNI.
--- NOTE | 2021-01-05 16:06 | NUR ---
Pt requesting to talk to a councelor or silver steward. Onel Lunsford called and came into see pt. Housekeeping/Laundry Supervisor and pt afforded privacy to talk.
[2021-01-06] VITALS (9 sets, daily range): BP systolic 124–153; BP diastolic 60–76
[2021-01-06] MEDS: meropenem inj 1 GM in normal saline 100ml IV soln 100 ML IV SCH ×3 (01:35→16:48)
--- NOTE | 2021-01-06 01:47 | NUR ---
Dr. Sales called back. new orders for hypo/hyperglycemic protocol.
[2021-01-06] MEDS ORDERED: glucagon, human recombinant 1mg kit SUBCUT PRN (01:50)
[2021-01-06] MEDS ORDERED: MESSAGE TO PHARMACY PO ONE (01:50)
[2021-01-06 06:19] LABS: BASOPHILS # (AUTO) 0.1 X10'3 (0-0.2); BASOPHILS % (AUTO) 0.4 % (0-1); EOSINOPHILS # (AUTO) 0.1 X10'3 (0-0.9); EOSINOPHILS % (AUTO) 1.1 % (0-6); HEMATOCRIT 37.3 % (35.0-45.0); HEMOGLOBIN 12.4 g/dl (12.0-16.0); LYMPHOCYTES # (AUTO) 1.2 X10'3 (1.1-4.8); LYMPHOCYTES % (AUTO) 9.9 % (21-51); MEAN CORPUSCULAR HEMOGLOBIN 30.2 PG (27.0-31.0); MEAN CORPUSCULAR HGB CONC 33.1 g/dL (33.0-36.5); MEAN CORPUSCULAR VOLUME 91.2 FL (78-98); MONOCYTES # (AUTO) 0.7 X10'3 (0-0.9); MONOCYTES % (AUTO) 5.9 % (2-12); NEUTROPHILS # (AUTO) 9.6 X10'3 (1.8-7.7); NEUTROPHILS % (AUTO) 82.7 % (42-75); PLATELET COUNT 279 X10'3 (140-440); RED BLOOD COUNT 4.09 X10'6 (4.20-5.60); WHITE BLOOD COUNT 11.6 X10'3 (4.5-11.0)
--- NOTE | 2021-01-06 06:29 | NUR ---
Problems reprioritized. Patient report given, questions answered & plan of care reviewed with Mana YANG. Pt semi folwers in bed, bipap at 30% FIO2. VS stable. breathing with accessory muscles at baseline. Cl within reach. safety measures in place.
[2021-01-06 06:43] LABS: ALANINE AMINOTRANSFERASE 46 U/L (12-78); ALBUMIN/GLOBULIN RATIO 0.5 (1.1-1.5); ALKALINE PHOSPHATASE 85 IU/L (46-116); ANION GAP 9 (8-16); ASPARTATE AMINO TRANSFERASE 54 U/L (10-37); BILIRUBIN,TOTAL 0.6 MG/DL (0.1-1.0); BLOOD UREA NITROGEN 22 MG/DL (7-18); CALCIUM 8.6 MG/DL (8.5-10.1); CHLORIDE 109 MMOL/L (99-107); GLUCOSE 163 MG/DL (70-104); MAGNESIUM 2.1 MG/DL (1.5-2.4); SODIUM 144 MMOL/L (135-145); TOTAL CARBON DIOXIDE 25.9 MMOL/L (24-32); TOTAL PROTEIN 6.4 G/DL (6.4-8.2); eGFR > 90 ML/MIN
[2021-01-06] MEDS: ipratropium/albuterol 3ml nebule IH SCH ×4 (07:13→20:01)
[2021-01-06] MEDS: nystatin 15 GM powder TP SCH ×4 (08:00→21:06)
[2021-01-06] MEDS: fluconazole 100mg tablet PO SCH (08:00)
[2021-01-06] MEDS: lansoprazole 15mg solutab PO SCH (09:00)
[2021-01-06] MEDS: OLANZapine 5mg rapidly disint. tablet NG SCH (09:01)
[2021-01-06] MEDS: aspirin 81mg tab.chew PO SCH (09:01)
[2021-01-06] MEDS: diltiazem 30mg tablet PO SCH ×3 (09:01→21:06)
[2021-01-06] MEDS: furosemide 40mg/4ml inj IV SCH ×2 (09:02→21:06)
[2021-01-06] MEDS: tamoxifen 10mg tablet PO SCH (09:02)
[2021-01-06] MEDS: ARIPIPRAZOLE 10 MG TABLET PO SCH (09:02)
[2021-01-06] MEDS: primidone 50mg tablet PO SCH (09:03)
[2021-01-06] MEDS: enoxaparin 40mg/0.4ml syringe SQ SCH (09:04)
[2021-01-06] MEDS: HYDROcodone/acetaminophen 5mg/325mg tablet PO PRN ×2 (12:24→16:49)
[2021-01-06] MEDS: insulin glargine (Lantus) pen - multi-dose SQ SCH (21:14)
[2021-01-07] VITALS (8 sets, daily range): BP systolic 112–148; BP diastolic 51–74
[2021-01-07] MEDS: meropenem inj 1 GM in normal saline 100ml IV soln 100 ML IV SCH ×4 (00:08→23:59)
[2021-01-07 03:58] LABS: BASOPHILS % (AUTO) 0.3 % (0-1); EOSINOPHILS # (AUTO) 0.2 X10'3 (0-0.9); EOSINOPHILS % (AUTO) 1.7 % (0-6); HEMATOCRIT 34.6 % (35.0-45.0); HEMOGLOBIN 11.2 g/dl (12.0-16.0); LYMPHOCYTES # (AUTO) 1.2 X10'3 (1.1-4.8); LYMPHOCYTES % (AUTO) 11.9 % (21-51); MEAN CORPUSCULAR HGB CONC 32.4 g/dL (33.0-36.5); MEAN CORPUSCULAR VOLUME 92.3 FL (78-98); MONOCYTES # (AUTO) 0.6 X10'3 (0-0.9); MONOCYTES % (AUTO) 6.2 % (2-12); NEUTROPHILS # (AUTO) 7.9 X10'3 (1.8-7.7); NEUTROPHILS % (AUTO) 79.9 % (42-75); PLATELET COUNT 296 X10'3 (140-440); RED BLOOD COUNT 3.75 X10'6 (4.20-5.60); RED CELL DISTRIBUTION WIDTH 15.4 % (11.5-14.5); WHITE BLOOD COUNT 9.9 X10'3 (4.5-11.0)
[2021-01-07 04:19] LABS: ALANINE AMINOTRANSFERASE 48 U/L (12-78); ALBUMIN 1.8 G/DL (3.4-5.0); ALBUMIN/GLOBULIN RATIO 0.5 (1.1-1.5); ALKALINE PHOSPHATASE 50 IU/L (46-116); ANION GAP 8 (8-16); ASPARTATE AMINO TRANSFERASE 51 U/L (10-37); BILIRUBIN,TOTAL 0.5 MG/DL (0.1-1.0); BLOOD UREA NITROGEN 18 MG/DL (7-18); BUN/CREATININE RATIO 32.1 (6.6-38.0); CALCIUM 8.1 MG/DL (8.5-10.1); CHLORIDE 107 MMOL/L (99-107); CREATININE 0.56 MG/DL (0.40-0.90); GLUCOSE 108 MG/DL (70-104); MAGNESIUM 2.2 MG/DL (1.5-2.4); POTASSIUM 3.6 MMOL/L (3.5-5.1); SODIUM 145 MMOL/L (135-145); TOTAL CARBON DIOXIDE 30.1 MMOL/L (24-32); TOTAL PROTEIN 5.8 G/DL (6.4-8.2); eGFR > 90 ML/MIN
--- NOTE | 2021-01-07 06:50 | NUR ---
GAVE REPORT TO CASIE YANG, SCOTT
[2021-01-07] MEDS: ipratropium/albuterol 3ml nebule IH SCH ×4 (07:11→20:16)
[2021-01-07] MEDS: primidone 50mg tablet PO SCH (07:54)
[2021-01-07] MEDS: aspirin 81mg tab.chew PO SCH (07:54)
[2021-01-07] MEDS: diltiazem 30mg tablet PO SCH ×3 (07:54→20:37)
[2021-01-07] MEDS: ARIPIPRAZOLE 10 MG TABLET PO SCH (07:54)
[2021-01-07] MEDS: HYDROcodone/acetaminophen 5mg/325mg tablet PO PRN ×2 (07:55→16:26)
[2021-01-07] MEDS: lansoprazole 15mg solutab PO SCH (07:55)
[2021-01-07] MEDS: furosemide 40mg/4ml inj IV SCH ×2 (07:56→20:35)
[2021-01-07] MEDS: fluconazole 100mg tablet PO SCH (07:56)
[2021-01-07] MEDS: enoxaparin 40mg/0.4ml syringe SQ SCH (08:06)
[2021-01-07] MEDS: nystatin 15 GM powder TP SCH ×4 (08:19→20:35)
[2021-01-07] MEDS: insulin Lispro (HumaLOG) vial - multi-dose SQ SCH ×2 (13:59→20:35)
[2021-01-07] MEDS: tamoxifen 10mg tablet PO SCH (14:15)
--- NOTE | 2021-01-07 18:27 | NUR ---
Patient in room PCU 3026. I have received report from Pat RN at bedside and had the opportunity to ask questions and assume patient care.
[2021-01-07] MEDS: insulin glargine (Lantus) pen - multi-dose SQ SCH (21:12)
[2021-01-08 02:00] VITALS: BP 127/67
--- NOTE | 2021-01-08 06:16 | NUR ---
Problems reprioritized. Patient report given, questions answered & plan of care reviewed with Maranda YANG at bedside.
--- NOTE | 2021-01-08 06:23 | NUR ---
Patient in room PCU 3026. I have received report from Jayla YANG and had the opportunity to ask questions and assume patient care. Pt semi fowlers in bed, O2/4lpm/nc. breathing dyspnic at baseline. spo2 stable at 97%. pt alert to voice. safety measures in place. CL within reach.
[2021-01-08 06:24] LABS: ALANINE AMINOTRANSFERASE 44 U/L (12-78); ALBUMIN 1.9 G/DL (3.4-5.0); ALBUMIN/GLOBULIN RATIO 0.4 (1.1-1.5); ALKALINE PHOSPHATASE 60 IU/L (46-116); ANION GAP 6 (8-16); ASPARTATE AMINO TRANSFERASE 52 U/L (10-37); BILIRUBIN,TOTAL 0.5 MG/DL (0.1-1.0); BLOOD UREA NITROGEN 17 MG/DL (7-18); BUN/CREATININE RATIO 40.5 (6.6-38.0); CALCIUM 8.5 MG/DL (8.5-10.1); CHLORIDE 106 MMOL/L (99-107); CREATININE 0.42 MG/DL (0.40-0.90); GLUCOSE 141 MG/DL (70-104); MAGNESIUM 2.2 MG/DL (1.5-2.4); POTASSIUM 3.6 MMOL/L (3.5-5.1); SODIUM 140 MMOL/L (135-145); TOTAL CARBON DIOXIDE 27.8 MMOL/L (24-32); TOTAL PROTEIN 6.3 G/DL (6.4-8.2); eGFR > 90 ML/MIN
[2021-01-08 07:00] VITALS: BP 113/98
[2021-01-08] MEDS: ipratropium/albuterol 3ml nebule IH SCH ×4 (07:21→21:27)
[2021-01-08] MEDS: tamoxifen 10mg tablet PO SCH (09:58)
[2021-01-08] MEDS: fluconazole 100mg tablet PO SCH (09:59)
[2021-01-08] MEDS: OLANZapine 5mg rapidly disint. tablet NG SCH ×2 (09:59→10:06)
[2021-01-08] MEDS: ARIPIPRAZOLE 10 MG TABLET PO SCH (10:00)
[2021-01-08] MEDS: aspirin 81mg tab.chew PO SCH (10:00)
[2021-01-08] MEDS: diltiazem 30mg tablet PO SCH ×3 (10:00→20:39)
[2021-01-08] MEDS: primidone 50mg tablet PO SCH (10:00)
[2021-01-08] MEDS: meropenem inj 1 GM in normal saline 100ml IV soln 100 ML IV SCH ×3 (10:01→23:05)
[2021-01-08] MEDS: lansoprazole 15mg solutab PO SCH (10:01)
[2021-01-08] MEDS: furosemide 40mg/4ml inj IV SCH ×2 (10:01→20:39)
[2021-01-08] MEDS: enoxaparin 40mg/0.4ml syringe SQ SCH (10:02)
[2021-01-08] MEDS: nystatin 15 GM powder TP SCH ×4 (10:02→20:39)
[2021-01-08] MEDS: insulin Lispro (HumaLOG) vial - multi-dose SQ SCH ×2 (10:10→13:51)
[2021-01-08 11:00] VITALS: BP 140/84
[2021-01-08] MEDS: HYDROcodone/acetaminophen 5mg/325mg tablet PO PRN ×2 (12:39→20:39)
[2021-01-08] MEDS ORDERED: furosemide 40mg/4ml inj IV ONE (13:10)
--- NOTE | 2021-01-08 14:10 | NUR ---
Reassessment: Pt remains very weak, s/p f/u BSS today with ST recs to continue full liquid diet. Pt with average 0-25% PO intake not meeting estimated nutrient needs, though unlikely to meet estimated nutrient needs even if PO intake improves given current diet order. ONS still unverified in EMR, notified RN that pt can benefit from ONS at this time. LBM 01/07 w/ only smears noted, rectal tube has been removed. Pt also not receiving TF per RN, although it was documented 01/06. Discussed w/ RN that pt may benefit from TF if unable to advance diet and continues w/ poor PO intake. Will continue to follow closely. Rec: 1. Advance diet to regular as medically indicated per ST recs; hx DM though A1C 5.6 per EMR 2. Ensure Enlive TID, pending MD approval in EMR 3. Bowel care per rx 4. Weekly scaled weights 5. IF pt's diet unable to advance and PO intake continues to be poor, may consider TF if within plan of care Addendum: 01/08/21 at [address] Amended: Links added.
[2021-01-08 15:00] VITALS: BP 137/67
[2021-01-08 18:00] VITALS: BP 146/66
--- NOTE | 2021-01-08 18:35 | NUR ---
Patient in room PCU 3026. I have received report from Maranda YANG at bedside and had the opportunity to ask questions and assume patient care.
--- NOTE | 2021-01-08 19:04 | NUR ---
Problems reprioritized. Patient report given, questions answered & plan of care reviewed with Jayla YANG . Pt semi fowlers in bed, with and daughter at bedside. O2 @ 4LPM. no s/sx acute distress.
[2021-01-08] MEDS: insulin glargine (Lantus) pen - multi-dose SQ SCH (21:09)
[2021-01-08 22:00] VITALS: BP 152/56
[2021-01-09 02:00] VITALS: BP 148/55
[2021-01-09 05:57] LABS: LYMPHOCYTES # (AUTO) 1.2 X10'3 (1.1-4.8); MONOCYTES # (AUTO) 0.6 X10'3 (0-0.9)
[2021-01-09 05:59] LABS: BASOPHILS # (AUTO) 0.1 X10'3 (0-0.2); BASOPHILS % (AUTO) 0.5 % (0-1); EOSINOPHILS # (AUTO) 0.1 X10'3 (0-0.9); EOSINOPHILS % (AUTO) 1.3 % (0-6); HEMATOCRIT 37.2 % (35.0-45.0); HEMOGLOBIN 11.9 g/dl (12.0-16.0); LYMPHOCYTES % (AUTO) 10.2 % (21-51); MEAN CORPUSCULAR HEMOGLOBIN 29.5 PG (27.0-31.0); MEAN CORPUSCULAR HGB CONC 31.9 g/dL (33.0-36.5); MEAN CORPUSCULAR VOLUME 92.3 FL (78-98); MONOCYTES % (AUTO) 4.9 % (2-12); NEUTROPHILS # (AUTO) 9.4 X10'3 (1.8-7.7); NEUTROPHILS % (AUTO) 83.1 % (42-75); PLATELET COUNT 287 X10'3 (140-440); RED BLOOD COUNT 4.03 X10'6 (4.20-5.60); RED CELL DISTRIBUTION WIDTH 15.4 % (11.5-14.5); WHITE BLOOD COUNT 11.4 X10'3 (4.5-11.0)
[2021-01-09 06:08] LABS: ALANINE AMINOTRANSFERASE 45 U/L (12-78); ALBUMIN 1.9 G/DL (3.4-5.0); ALBUMIN/GLOBULIN RATIO 0.4 (1.1-1.5); ALKALINE PHOSPHATASE 122 IU/L (46-116); ANION GAP 7 (8-16); ASPARTATE AMINO TRANSFERASE 51 U/L (10-37); BILIRUBIN,TOTAL 0.5 MG/DL (0.1-1.0); BLOOD UREA NITROGEN 17 MG/DL (7-18); BUN/CREATININE RATIO 38.6 (6.6-38.0); CALCIUM 8.4 MG/DL (8.5-10.1); CHLORIDE 106 MMOL/L (99-107); CREATININE 0.44 MG/DL (0.40-0.90); GLUCOSE 139 MG/DL (70-104); MAGNESIUM 2.4 MG/DL (1.5-2.4); POTASSIUM 3.5 MMOL/L (3.5-5.1); SODIUM 143 MMOL/L (135-145); TOTAL CARBON DIOXIDE 30.2 MMOL/L (24-32); TOTAL PROTEIN 6.4 G/DL (6.4-8.2); eGFR > 90 ML/MIN
--- NOTE | 2021-01-09 06:18 | NUR ---
Problems reprioritized. Patient report given, questions answered & plan of care reviewed with Luma RN at bedside.
--- NOTE | 2021-01-09 06:35 | NUR ---
Patient in room PCU 3026. I have received report from TREY Dickerson and had the opportunity to ask questions and assume patient care. Patient asleep in bed and in no acute distress.
[2021-01-09 07:00] VITALS: BP 113/59
[2021-01-09] MEDS: ipratropium/albuterol 3ml nebule IH SCH ×2 (07:58→11:31)
[2021-01-09] MEDS: lactose-reduced food (Ensure Enlive) - 237ml bottle PO SCH ×2 (08:00→13:00)
[2021-01-09] MEDS: furosemide 40mg/4ml inj IV SCH (08:05)
[2021-01-09] MEDS: meropenem inj 1 GM in normal saline 100ml IV soln 100 ML IV SCH (08:06)
[2021-01-09] MEDS: diltiazem 30mg tablet PO SCH ×2 (08:08→14:15)
[2021-01-09] MEDS: aspirin 81mg tab.chew PO SCH (08:09)
[2021-01-09] MEDS: ARIPIPRAZOLE 10 MG TABLET PO SCH (08:09)
[2021-01-09] MEDS: primidone 50mg tablet PO SCH (08:10)
[2021-01-09] MEDS: lansoprazole 15mg solutab PO SCH (08:11)
[2021-01-09] MEDS: tamoxifen 10mg tablet PO SCH (08:12)
[2021-01-09] MEDS: fluconazole 100mg tablet PO SCH (08:13)
[2021-01-09] MEDS: nystatin 15 GM powder TP SCH ×3 (08:13→17:00)
[2021-01-09] MEDS: enoxaparin 40mg/0.4ml syringe SQ SCH (08:14)
[2021-01-09] MEDS ORDERED: salt irrigation nasal spray 45 ML SPRAY NS SCH (09:25)
[2021-01-09] MEDS ORDERED: fluticasone nasal spray 16GM bottle NS SCH (09:25)
[2021-01-09] MEDS ORDERED: furosemide 40mg/4ml inj IV ONE (09:25)
[2021-01-09 11:00] VITALS: BP 138/52
[2021-01-09] MEDS: OLANZapine 5mg rapidly disint. tablet NG SCH (14:15)
[2021-01-09 15:00] VITALS: BP 142/55
--- NOTE | 2021-01-09 16:00 | NUR ---
Called report to [facility] and spoke to LOREN Oh. Awaiting patient to be picked up for transfer. Transfer time approximately 1730.
--- NOTE | 2021-01-09 17:20 | NUR ---
Patient stable for transfer per MD orders. All discharge instructions reviewed and questions answered appropriately. Belongings collected and sent with patient. PICC and pompa catheter in place at time of discharge. monitoring specialist discontinued. Patient picked up via gurney and left via [facility].
[2021-01-09] MEDS ORDERED: furosemide 10 MG/1 ML 10ml inj IV SCH (20:00)
[2021-01-09] MEDS ORDERED: guaiFENesin ER 600mg tablet PO SCH (20:00)
== END 2021-01-09 17:05 | DRG 853 ==
LOC: ER 01:24 → ED HOLD 04:03 → UNDOADMIN 04:03 → ED HOLD 04:08 → ORTHO 4S 07:30 → ICU 2S 12-28 17:28 → PCU 3S 01-04 15:55
PROVIDERS: ADMIT Family Medicine; ATTEND Family Medicine
PROC: 0W9G4ZZ Drainage of Peritoneal Cavity, Percutaneous Endoscopic Approach (ICD-10-PCS; 2020-12-25)
PROC: 8E0W4CZ Robotic Assisted Procedure of Trunk Region, Percutaneous Endoscopic Approach (ICD-10-PCS; 2020-12-25)
PROC: 0DTJ4ZZ Resection of Appendix, Percutaneous Endoscopic Approach (ICD-10-PCS; principal; 2020-12-25 18:00)
PROC: 5A09357 Assistance with Respiratory Ventilation, Less than 24 Consecutive Hours, Continuous Positive Airway Pressure (ICD-10-PCS; 2020-12-26)
PROC: 5A09357 Assistance with Respiratory Ventilation, Less than 24 Consecutive Hours, Continuous Positive Airway Pressure (ICD-10-PCS; 2020-12-27)
PROC: 5A1955Z Respiratory Ventilation, Greater than 96 Consecutive Hours (ICD-10-PCS; 2020-12-28)
PROC: 0BH17EZ Insertion of Endotracheal Airway into Trachea, Via Natural or Artificial Opening (ICD-10-PCS; 2020-12-28)
PROC: 5A09357 Assistance with Respiratory Ventilation, Less than 24 Consecutive Hours, Continuous Positive Airway Pressure (ICD-10-PCS; 2020-12-28)
PROC: 5A1935Z Respiratory Ventilation, Less than 24 Consecutive Hours (ICD-10-PCS; 2020-12-28)
PROC: 02HV33Z Insertion of Infusion Device into Superior Vena Cava, Percutaneous Approach (ICD-10-PCS; 2021-01-01)
PROC: B548ZZA Ultrasonography of Superior Vena Cava, Guidance (ICD-10-PCS; 2021-01-01)
PROC: BW211ZZ Computerized Tomography (CT Scan) of Abdomen and Pelvis using Low Osmolar Contrast (ICD-10-PCS; 2021-01-02)
PROC: 5A09357 Assistance with Respiratory Ventilation, Less than 24 Consecutive Hours, Continuous Positive Airway Pressure (ICD-10-PCS; 2021-01-03)
PROC: 5A09457 Assistance with Respiratory Ventilation, 24-96 Consecutive Hours, Continuous Positive Airway Pressure (ICD-10-PCS; 2021-01-04)
PROC: 5A09357 Assistance with Respiratory Ventilation, Less than 24 Consecutive Hours, Continuous Positive Airway Pressure (ICD-10-PCS; 2021-01-07)
DX: A41.9 Sepsis, unspecified organism (principal); J80 Acute respiratory distress syndrome; K35.32 Acute appendicitis with perforation, localized peritonitis, and gangrene, without abscess; K56.7 Ileus, unspecified; E87.0 Hyperosmolality and hypernatremia; J44.1 Chronic obstructive pulmonary disease with (acute) exacerbation; R18.8 Other ascites; E87.3 Alkalosis; N63.20 Unspecified lump in the left breast, unspecified quadrant; E11.9 Type 2 diabetes mellitus without complications; E87.6 Hypokalemia; F03.90 Unspecified dementia, unspecified severity, without behavioral disturbance, psychotic disturbance, mood disturbance, and anxiety; F32.9 Major depressive disorder, single episode, unspecified; G40.909 Epilepsy, unspecified, not intractable, without status epilepticus; G89.4 Chronic pain syndrome; I11.0 Hypertensive heart disease with heart failure; I25.10 Atherosclerotic heart disease of native coronary artery without angina pectoris; K21.9 Gastro-esophageal reflux disease without esophagitis; F41.9 Anxiety disorder, unspecified; K38.1 Appendicular concretions; R59.1 Generalized enlarged lymph nodes; K76.89 Other specified diseases of liver; R16.0 Hepatomegaly, not elsewhere classified; I50.813 Acute on chronic right heart failure; K52.9 Noninfective gastroenteritis and colitis, unspecified; R74.01 Elevation of levels of liver transaminase levels; Z20.822 Contact with and (suspected) exposure to COVID-19; M79.7 Fibromyalgia; Z79.810 Long term (current) use of selective estrogen receptor modulators (SERMs); Z85.3 Personal history of malignant neoplasm of breast; Z87.891 Personal history of nicotine dependence; Z95.0 Presence of cardiac pacemaker; Z79.84 Long term (current) use of oral hypoglycemic drugs; Z88.2 Allergy status to sulfonamides; Z88.5 Allergy status to narcotic agent; Z79.899 Other long term (current) drug therapy; Z66 Do not resuscitate
CPT/HCPCS: 36415; 36573; 36600; 71045; 74018; 74176; 74177; 80053; 80184; 80188; 81001; 82103; 82140; 82150; 82803; 82810; 82948; 83036; 83605; 83690; 83735; 83880; 84100; 84132; 84145; 84439; 84443; 84478; 85007; 85018; 85025; 85379; 85384; 85610; 85730; 87040; 87070; 87077; 87081; 87088; 87185; 87324; 87449; 87635; 88304; 92508; 92616; 93005; 93306; 94002; 94003; 94640; 94660; 94760; 94799; 96361; 96374; 96375; 96376; 97110; 97161; 97530; 99285; A4215; A4618; C9113; C9399; C9803; G0378; J0360; J0694; J1100; J1170; J1450; J1650; J1815; J1940; J2001; J2185; J2250; J2270; J2405; J2543; J2704; J2710; J3010; J3480; J3490; J7030; J7040; J7050; J7070; J7120; P9045; Q9963; Q9967

== ENCOUNTER 2022-01-22 11:55 | Outpatient (CLI) | payer BC ==
[~2022-01-22 11:55] MED LIST changes: +ACET-1025 PO; +AMPH10CA3 PO; -ARIP10TA15 PO; +ARIP15TA19 PO; +BUPR150T8 PO; +DILT120C94 PO; +DIPH25TA62 PO; +EMPA1TAB21 PO; -ENAL5TAB21 PO; +FLUT1BLS16 INH; +FURO-150 PO; +IPRA3AMP9 IH; +MELO-102 PO; -METF500T PO; +OLAN-1 PO; +POTA-207 PO; +RIVA20TA PO; +SOTA80TA46 PO
[2022-01-22 12:51] LABS: ALBUMIN 3.1 G/DL (3.4-5.0); ANION GAP 8 (8-16); BLOOD UREA NITROGEN 15 MG/DL (7-18); BUN/CREATININE RATIO 28.8 (6.6-38.0); CALCIUM 9.4 MG/DL (8.5-10.1); CHLORIDE 100 MMOL/L (99-107); CREATININE 0.52 MG/DL (0.40-0.90); GLUCOSE 96 MG/DL (70-104); POTASSIUM 4.2 MMOL/L (3.5-5.1); SODIUM 140 MMOL/L (135-145); TOTAL CARBON DIOXIDE 32.1 MMOL/L (24-32); eGFR > 90 ML/MIN
== END 2022-01-22 23:59 | disposition home or self-care (01) ==
LOC: LAB 11:55
PROVIDERS: ATTEND Thoracic Surgery (Cardiothoracic Vascular Surgery)
DX: R06.02 Shortness of breath (principal)
CPT/HCPCS: 36415; 80048

== ENCOUNTER 2022-01-31 09:40 | Outpatient (CLI) | payer BC ==
[2022-01-31] MEDS ORDERED: iohexol 350MG/ML 100ml bottle IV ONE (10:30)
== END 2022-01-31 23:59 | disposition home or self-care (01) ==
LOC: RAD 09:40
PROVIDERS: ATTEND Thoracic Surgery (Cardiothoracic Vascular Surgery)
DX: J90 Pleural effusion, not elsewhere classified (principal); R91.8 Other nonspecific abnormal finding of lung field; J94.2 Hemothorax; R59.0 Localized enlarged lymph nodes; K74.60 Unspecified cirrhosis of liver; N64.89 Other specified disorders of breast
CPT/HCPCS: 71275; J3490; Q9967